=== PATIENT | female | born 1950 | race Caucasian/White ===

== ENCOUNTER → 2017-08-16 12:50 | Outpatient (CLI) | payer MEDICARE, MEDICAID, SELFPAY | PROVIDERS: Family Provider Physician Assistant Medical; PCP Physician Assistant Medical; Visit Provider Nurse Practitioner Gerontology | DX: M81.0 Age-related osteoporosis without current pathological fracture (principal) | CPT/HCPCS: 77080 ==

== ENCOUNTER → 2017-12-09 11:06 | Outpatient (CLI) | payer MEDICARE, MEDICAID, SELFPAY ==
--- NOTE | 2017-12-09 | DI.RAD.S_ITS ---
PROCEDURE: XR LUMBAR SPINE 2-3V INDICATIONS: NECK AND BACK PAIN TECHNIQUE: 3 views of the lumbar spine were acquired. COMPARISON: [facility], , L-SPINE 2-3 VIEWS, 07/26/2017, 11:33. FINDINGS: Bones: 5 [id number] vertebrae are present. Chronic appearing anterior wedge compression deformities involving L1, L2, and L4 vertebral bodies are again seen, unchanged from previous study. There is interval development of anterior wedge compression at L3 level with approximately 30% loss of L3 vertebral body height anteriorly. Subacute to chronic L5 superior endplate compression is again noted, unchanged from previous study. No traumatic spondylolisthesis. No suspicious bony lesions. Soft tissues: Overlying bowel gas pattern is normal. No suspicious soft tissue calcifications. IMPRESSION: Stable compression deformities involving L1, L2, L4 and L5 vertebral bodies unchanged from previous study. New anterior wedge compression at L3 level with up to 30% loss of L3 vertebral body height anteriorly. 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 Dictated by: Greyson Swenson M.D. on 12/09/2017 at 12:29 Approved by: Greyson Swenson M.D. on 12/09/2017 at 12:31
--- NOTE | 2017-12-09 | DI.RAD.S_ITS ---
PROCEDURE: XR THORACIC SPINE 2V INDICATIONS: NECK AND BACK PAIN TECHNIQUE: 2 views of the thoracic spine were acquired. COMPARISON: [facility], CT, CHEST/ABDOMEN WITH CONTRAST, 03/02/2015, 11:57. [facility], CR, L-SPINE 2-3 VIEWS, 07/26/2017, 11:33. FINDINGS: Bones: Age-indeterminate anterior wedge compression deformity involving T6, T8, and T9 vertebral bodies are seen without to 50% loss of T6 vertebral body height anteriorly. This was not seen on previous CT of chest, abdomen and pelvis study dated 03/02/15. Superior endplate compression at T11 level is noted with questionable interval slight further loss of T11 vertebral body height. Compression deformities involving L1 and L2 vertebral bodies are noted, which was also seen on previous lumbar spine study. No traumatic spondylolisthesis. Mild kyphosis centered at T6-7 level is seen. No suspicious bony lesions. 12 pairs of ribs are noted, and appear intact where visualized. Soft tissues: No paravertebral stripe thickening. IMPRESSION: Age indeterminant anterior wedge compression deformity at T6, T8 and T9 level is new since 2014. Questionable slight increase of superior endplate compression at T11 level compared to 2015 study. Compression deformities involving L1 and L2 vertebral bodies, please correlate with lumbar spine study finding. Dictated by: Greyson Swenson M.D. on 12/09/2017 at 12:15 Approved by: Greyson Swenson M.D. on 12/09/2017 at 12:28
--- NOTE | 2017-12-09 | DI.RAD.S_ITS ---
PROCEDURE: XR CERVICAL SPINE 2V OR 3V INDICATIONS: NECK AND BACK PAIN TECHNIQUE: 3 view(s) of the cervical spine were acquired. COMPARISON: None. FINDINGS: Bones: No fractures or dislocations to the C7-T1 level. Grade 1 anterolisthesis of C6 on C7 is seen. Decreased intervertebral disc space and degenerative endplate changes are noted at C4-5 through C6-7 levels more prominent at C5-6 level. Bilateral facet hypertrophic changes also noted. The lateral masses of C1 appear intact on the odontoid view. No suspicious bony lesions. Soft tissues: No prevertebral soft tissue swelling. IMPRESSION: Degenerative disc disease in mid to lower cervical spine multilevel end at C5-6 level. No acute compression fracture or traumatic spondylolisthesis. Dictated by: Greyson Swenson M.D. on 12/09/2017 at 12:13 Approved by: Greyson Swenson M.D. on 12/09/2017 at 12:15
== END ==
PROVIDERS: Family Provider Physician Assistant Medical; PCP Physician Assistant Medical; Visit Provider Physician Assistant Medical
DX: M50.322 Other cervical disc degeneration at C5-C6 level (principal); M48.54XA Collapsed vertebra, not elsewhere classified, thoracic region, initial encounter for fracture; M48.56XA Collapsed vertebra, not elsewhere classified, lumbar region, initial encounter for fracture; M51.36 Other intervertebral disc degeneration, lumbar region; M43.16 Spondylolisthesis, lumbar region; M54.5 Low back pain
CPT/HCPCS: 72040; 72070; 72100

== ENCOUNTER → 2018-04-29 09:24 | Outpatient (CLI) | payer MEDICARE, MEDICAID, SELFPAY ==
--- NOTE | 2018-04-29 | DI.MG.S_ITS ---
BILATERAL DIGITAL SCREENING MAMMOGRAM 3D/2D WITH CAD: 04/29/2018 CLINICAL: Routine screening. Family history of breast cancer. Comparison is made to exams dated: 02/18/2017 mammogram, 09/17/2016 mammogram - [facility], 12/13/2015 mammogram - [facility], and [facility]. There are scattered fibroglandular elements in both breasts. Current study was also evaluated with a Computer Aided Detection (CAD) system. No significant masses, calcifications, or other findings are seen in either breast. There has been no significant interval change. IMPRESSION: NEGATIVE There is no mammographic evidence of malignancy. A 1 year screening mammogram is recommended. This exam was interpreted at Station ID: [id number]. NOTE: For mammograms, a report in lay terms will be sent to the patient. Approximately 15% of breast malignancies will not be visualized mammographically. In the management of a palpable breast mass, a negative mammogram must not discourage biopsy of a clinically suspicious lesion. Electronically Signed By: Michi robertson/daria:04/29/2018 16:34:46 copy to: DRAKE ESPOSITO letter sent: Normal Exam ACR BI-RADS Category 1: Negative [id number]
== END ==
PROVIDERS: Family Provider Physician Assistant Medical; PCP Physician Assistant Medical; Visit Provider Physician Assistant Medical
DX: Z12.31 Encounter for screening mammogram for malignant neoplasm of breast (principal); Z80.3 Family history of malignant neoplasm of breast
CPT/HCPCS: 77063; 77067

== ENCOUNTER → 2018-11-03 12:56 | Outpatient (CLI) | payer MEDICARE, MEDICAID, SELFPAY | PROVIDERS: Family Provider Physician Assistant Medical; PCP Physician Assistant Medical; Visit Provider Physician Assistant Medical | DX: M80.00XA Age-related osteoporosis with current pathological fracture, unspecified site, initial encounter for fracture (principal); M85.89 Other specified disorders of bone density and structure, multiple sites; Z78.0 Asymptomatic menopausal state | CPT/HCPCS: 36415; 77080; 80053; 83615; 85025; 99215 ==

== ENCOUNTER → 2018-12-29 15:07 | Outpatient (CLI) | payer MEDICARE, MEDICAID, SELFPAY ==
--- NOTE | 2018-12-29 15:12 | DI.MRI.S_ITS ---
PROCEDURE: MR HEAD/BRAIN WO/W CON INDICATIONS: headache and aphasia TECHNIQUE: Noncontrast axial T1 spin echo, axial T2 fast spin echo, sagittal and axial FLAIR, coronal T2 fast spin echo, axial gradient echo, axial diffusion and ADC through the brain. After the administration of contrast, axial and coronal T1 spin echo with fat saturation through the brain. COMPARISON: None. FINDINGS: Image quality: Excellent. CSF spaces: Basal cisterns are patent. No extra-axial fluid collections. Ventricles are normal in size and shape. Brain: No midline shift. No intracranial bleeds or masses. No abnormal intracranial enhancement. There is cerebral volume loss for age. There is mild periventricular white matter chronic small vessel ischemic change. The brainstem appears normal. Diffusion-weighted images demonstrate no acute ischemic insults. No chronic ischemic insults. Normal intravascular flow voids are present. Skull and face: Calvarial marrow is normal in signal. Orbits appear normal. Sinuses: Small air-fluid level in the left frontal sinus. Sinuses and mastoids otherwise appear clear. IMPRESSION: 1. No evidence acute stroke, hemorrhage, or mass. 2. Mild age-related volume loss and small vessel ischemic change. 3. Mild acute left frontal sinusitis. The Dictated by: Rober Zayas M.D. on 12/29/2018 at 16:17 Approved by: Rober Zayas M.D. on 12/29/2018 at 16:21
== END ==
PROVIDERS: Family Provider Physician Assistant Medical; PCP Physician Assistant Medical; Visit Provider Internal Medicine Hematology & Oncology
DX: C82.90 Follicular lymphoma, unspecified, unspecified site (principal); R51 Headache; R47.01 Aphasia; J01.10 Acute frontal sinusitis, unspecified
CPT/HCPCS: 70553; A9579

== ENCOUNTER → 2019-05-26 14:06 | Outpatient (CLI) | payer MEDICARE, MEDICAID, SELFPAY ==
--- NOTE | 2019-05-26 | DI.MG.S_ITS ---
BILATERAL DIGITAL SCREENING MAMMOGRAM 3D/2D WITH CAD: 05/26/2019 CLINICAL: Routine screening. Family history of breast cancer. Comparison is made to exams dated: 04/29/2018 mammogram, 02/18/2017 mammogram, and 09/17/2016 mammogram - [facility]. There are scattered fibroglandular elements in both breasts. Current study was also evaluated with a Computer Aided Detection (CAD) system. No significant masses, calcifications, or other findings are seen in either breast. There has been no significant interval change. IMPRESSION: NEGATIVE There is no mammographic evidence of malignancy. A 1 year screening mammogram is recommended. This exam was interpreted at Station ID: [id number]. NOTE: For mammograms, a report in lay terms will be sent to the patient. Approximately 15% of breast malignancies will not be visualized mammographically. In the management of a palpable breast mass, a negative mammogram must not discourage biopsy of a clinically suspicious lesion. Electronically Signed By: Lisa armenta/daria:05/26/2019 16:08:09 copy to: DRAKE ESPOSITO letter sent: Normal Exam ACR BI-RADS Category 1: Negative [id number]
== END ==
PROVIDERS: Family Provider Physician Assistant Medical; PCP Physician Assistant Medical; Referring Provider Physician Assistant Medical; Visit Provider Physician Assistant Medical
DX: Z12.31 Encounter for screening mammogram for malignant neoplasm of breast (principal); Z80.3 Family history of malignant neoplasm of breast
CPT/HCPCS: 77063; 77067

== ENCOUNTER → 2020-08-11 11:33 | Outpatient (CLI) | payer MEDICARE, MEDICAID, SELFPAY ==
[2020-08-11 20:18] LABS: Add Manual Diff / Slide Review NO; Basophils Absolute Auto 100 /uL (0-100); Eosinophils Absolute Auto 100 /uL (0-450); Eosinophils Percent Auto 2.1 % (2-4); Hemoglobin 12.1 g/dL (12.0-16.0); Lymphocytes Absolute Auto 900 /uL (1100-4500); Lymphocytes Percent Auto 16.9 % (25-40); Mean Corpuscular HGB Conc 33.5 % (30-36); Mean Corpuscular Hemoglobin 31.1 PG (26-34); Mean Corpuscular Volume 92.7 fL (80-100); Monocytes Absolute Auto 600 /uL (0-900); Monocytes Percent Auto 10.7 % (3-14); Neutrophils Absolute Auto 3700 /uL (1500-7000); Neutrophils Percent Auto 69.3 % (50-75); Platelet Count 261 X10^3/uL (150-400); Red Blood Cell Count 3.89 X10^6/uL (4.0-5.2); Red Cell Distribution Width 14.3 % (11.6-14.8); White Blood Cell Count 5.3 X10^3/uL (4.5-11.0)
[2020-08-11 20:26] LABS: Alanine Aminotransferase 12 IU/L (<35); Albumin 4.2 g/dL (3.5-5.0); Albumin Globulin Ratio 1.2 (1.0-2.8); Alkaline Phosphatase 87 U/L (38-126); Aspartate Aminotransferase 25 IU/L (14-36); BUN Creatinine Ratio 17.7 (6-22); Bilirubin Total 0.8 mg/dL (0.2-1.3); Blood Urea Nitrogen 17 mg/dL (7-17); Calcium 10.1 mg/dL (8.4-10.2); Carbon Dioxide 31 mmol/L (22-32); Chloride 102 mmol/L (98-107); Estimated Glomerular Filt Rate 57.3 mL/min (>60); Globulin 3.5 g/dL (1.7-4.1); Glucose 97 mg/dL (80-110); HEMOLYSIS < 15 (0-50); Lactate Dehydrogenase 394 U/L (313-618); Potassium 4.3 mmol/L (3.4-5.1); Sodium 140 mmol/L (137-145); Total Protein 7.7 g/dL (6.3-8.2)
== END ==
PROVIDERS: Family Provider Physician Assistant Medical; PCP Physician Assistant Medical; Visit Provider Internal Medicine Hematology & Oncology
DX: K62.3 Rectal prolapse (principal); C82.90 Follicular lymphoma, unspecified, unspecified site
CPT/HCPCS: 80053; 83615; 85025

== ENCOUNTER → 2021-03-23 11:54 | Outpatient (CLI) | payer MEDICARE, MEDICAID, SELFPAY ==
[2021-03-23 19:16] LABS: Add Manual Diff / Slide Review NO; Basophils Absolute Auto 0 /uL (0-100); Basophils Percent Auto 0.8 % (0-2); Eosinophils Absolute Auto 100 /uL (0-450); Eosinophils Percent Auto 2.5 % (2-4); Hematocrit 32.9 % (36-46); Hemoglobin 11.1 g/dL (12.0-16.0); Lymphocytes Absolute Auto 1200 /uL (1100-4500); Lymphocytes Percent Auto 21.7 % (25-40); Mean Corpuscular HGB Conc 33.8 % (30-36); Mean Corpuscular Hemoglobin 30.9 PG (26-34); Mean Corpuscular Volume 91.5 fL (80-100); Monocytes Absolute Auto 700 /uL (0-900); Monocytes Percent Auto 12.4 % (3-14); Neutrophils Absolute Auto 3500 /uL (1500-7000); Neutrophils Percent Auto 62.6 % (50-75); Platelet Count 330 X10^3/uL (150-400); Red Cell Distribution Width 13.7 % (11.6-14.8); White Blood Cell Count 5.6 X10^3/uL (4.5-11.0)
[2021-03-23 19:22] LABS: Alanine Aminotransferase 13 IU/L (<35); Albumin 4.4 g/dL (3.5-5.0); Albumin Globulin Ratio 1.4 (1.0-2.8); Alkaline Phosphatase 75 U/L (38-126); Aspartate Aminotransferase 25 IU/L (14-36); BUN Creatinine Ratio 16.7 (6-22); Bilirubin Total 0.8 mg/dL (0.2-1.3); Blood Urea Nitrogen 15 mg/dL (7-17); Calcium 9.7 mg/dL (8.4-10.2); Carbon Dioxide 29 mmol/L (22-32); Chloride 101 mmol/L (98-107); Estimated Glomerular Filt Rate > 60.0 mL/min (>60); Globulin 3.1 g/dL (1.7-4.1); Glucose 84 mg/dL (80-110); HEMOLYSIS < 15 (0-50); Lactate Dehydrogenase 382 U/L (313-618); Potassium 4.1 mmol/L (3.4-5.1); Sodium 138 mmol/L (137-145); Total Protein 7.5 g/dL (6.3-8.2)
== END ==
PROVIDERS: Family Provider Physician Assistant Medical; PCP Physician Assistant Medical; Referring Provider Internal Medicine Hematology & Oncology; Visit Provider Internal Medicine Hematology & Oncology
DX: C82.90 Follicular lymphoma, unspecified, unspecified site (principal); M80.80XA Other osteoporosis with current pathological fracture, unspecified site, initial encounter for fracture
CPT/HCPCS: 80053; 83615; 85025

== ENCOUNTER → 2021-08-10 08:58 | Outpatient (CLI) | payer MEDICARE, MEDICAID, SELFPAY ==
--- NOTE | 2021-08-10 09:02 | DI.RAD.S_ITS ---
PROCEDURE: XR DEXA AXIAL SKELETON INDICATIONS: osteoporosis COMPARISON: None. FINDINGS: This blank DEXA report has been sent in error by the PACS system. The correct and complete report will be forthcoming in 1-2 days. Thank you for your patience and understanding. Dictated by: Adelaida Sainz MD, PhD on 08/10/2021 at 16:14 Approved by: Adelaida Sainz MD, PhD on 08/10/2021 at 16:14
== END ==
PROVIDERS: Family Provider Physician Assistant Medical; PCP Physician Assistant Medical; Referring Provider Internal Medicine Hematology & Oncology; Visit Provider Internal Medicine Hematology & Oncology
DX: Z78.0 Asymptomatic menopausal state (principal); M81.0 Age-related osteoporosis without current pathological fracture; M48.50XA Collapsed vertebra, not elsewhere classified, site unspecified, initial encounter for fracture
CPT/HCPCS: 77080

== ENCOUNTER → 2021-08-23 08:35 | Outpatient (CLI) | payer MEDICARE, MEDICAID, SELFPAY ==
[2021-08-23 18:59] LABS: Hematocrit 35.3 % (36-46); Hemoglobin 11.5 g/dL (12.0-16.0); Mean Corpuscular HGB Conc 32.6 % (30-36); Mean Corpuscular Hemoglobin 27.2 PG (26-34); Mean Corpuscular Volume 83.3 fL (80-100); Platelet Count 301 X10^3/uL (150-400); Red Blood Cell Count 4.24 X10^6/uL (4.0-5.2); Red Cell Distribution Width 18.2 % (11.6-14.8); White Blood Cell Count 14.7 X10^3/uL (4.5-11.0)
[2021-08-23 19:03] LABS: Add Manual Diff / Slide Review YES; Alanine Aminotransferase 14 IU/L (<35); Albumin 3.1 g/dL (3.5-5.0); Albumin Globulin Ratio 0.8 (1.0-2.8); Alkaline Phosphatase 268 U/L (38-126); Aspartate Aminotransferase 44 IU/L (14-36); BUN Creatinine Ratio 17.6 (6-22); Bilirubin Total 1.3 mg/dL (0.2-1.3); Blood Urea Nitrogen 12 mg/dL (7-17); Calcium 8.1 mg/dL (8.4-10.2); Carbon Dioxide 25 mmol/L (22-32); Chloride 93 mmol/L (98-107); Estimated Glomerular Filt Rate > 60 mL/min (>60); Globulin 3.8 g/dL (1.7-4.1); Glucose 99 mg/dL (80-110); HEMOLYSIS 21 (0-50); Potassium 3.2 mmol/L (3.4-5.1); Sodium 132 mmol/L (137-145); Total Protein 6.9 g/dL (6.3-8.2)
[2021-08-23 19:31] LABS: TSH w/ Reflex to FT4 1.52 uIU/mL (0.47-4.68)
[2021-08-23 20:10] LABS: Anisocytosis 1+; Neutrophils Absolute Manual 12936 /uL (3000-5900); Nucleated Red Blood Cells 1 #/Diff; Total Cells Counted 100
[2021-08-23 20:12] LABS: Polychromasia 1+; Target Cells 1+
[2021-08-23 20:38] LABS: Influenza A - CEPHEID Flu A NEGATIVE (NEGATIVE); Influenza B - CEPHEID Flu B NEGATIVE (NEGATIVE)
[2021-08-23 20:40] LABS: COVID-19 CEPHEID PCR (VTM/NP) Negative (Negative)
== END ==
PROVIDERS: Family Provider Physician Assistant Medical; PCP Physician Assistant Medical; Visit Provider Physician Assistant Medical
DX: R53.83 Other fatigue (principal); R11.0 Nausea; R19.7 Diarrhea, unspecified; R68.83 Chills (without fever); N89.0 Mild vaginal dysplasia
CPT/HCPCS: 0240U; 80053; 84443; 85007; 85025

== ENCOUNTER 2021-08-24 10:04 | Inpatient (IN) | payer MEDICARE, MEDICAID, SELFPAY ==
[2021-08-24] VITALS (18 sets, daily range): BP systolic 119–161; BP diastolic 69–83; PULSE 80–96; RESP 15–25; TEMP 36.2–37.1; O2SAT 94–98; BMI 26.4; BMI 25.7
--- NOTE | 2021-08-24 10:58 | DI.RAD.S_ITS ---
PROCEDURE: XR CHEST 1V INDICATIONS: weakness TECHNIQUE: One view of the chest was acquired. COMPARISON: [facility], , CHEST 1 VIEW, 07/10/2013, 12:48. FINDINGS: Surgical changes and devices: None. Lungs and pleura: Lungs are clear. No pleural effusions or pneumothorax. Diffuse chronic interstitial change and left lower lobe calcified granuloma noted in the periphery, stable from prior exam. Mediastinum: Mediastinal contours appear normal. Heart size is normal. Bones and chest wall: No suspicious bony lesions. Overlying soft tissues appear unremarkable. Generalized decrease in osseous mineralization noted. IMPRESSION: No acute cardiopulmonary findings Left lower lobe calcified granuloma Chronic interstitial changes Approved by: Candido Ruiz M.D. on 08/24/2021 at 10:29
--- NOTE | 2021-08-24 11:19 | ED.WEAKNESS ---
HPI - Weakness General Chief complaint: Weakness Stated complaint: Weakness/dehydration Time Seen by Provider: 08/24/21 10:56 Source: patient and EMS Mode of arrival: EMS Limitations: no limitations History of Present Illness HPI Narrative: This is a 70-year-old female comes emergency department with complaint of shortness of breath, left-sided chest pain and epigastric discomfort. Patient describes her pain is a tightness and not really painful. Syncope but she will sometimes see lights or feels like she is going to pass out. She has had increasing shortness of breath over time. She has had a dry cough which has been nonproductive. No fevers. She states it is worse with exertion. She denies any nausea or vomiting. She had 2 weeks of diarrhea which has resolved several weeks ago. She has had some persistent abdominal discomfort. She states she developed a rectal prolapse which is somewhat painful. She denies any dysuria urgency or frequency. She has a known history of lymphoma follows with Dr. Arguello for oncology for surveillance she had chemotherapy in 2012, no radiation. She is not currently on any medications. She takes medications for osteoarthritis including Tylenol daily, topical estrogen an antihistamine. She has had prior biopsy of nodes, port and vein stripping as well as but no other surgeries. Allergic to penicillin, latex and amoxicillin. Quit smoking in 1998, she was drinking 1 but light daily until about a week when she felt like she was developing an allergy. No illicit or recreational drugs. Primary care is Wendi paulson. Her oncologist is Dr. Arguello. Related Data Home Medications Medication Instructions Recorded Confirmed acetaminophen 650 mg 650 mg PO Q8H PRN 08/17/21 08/24/21 tablet,extended release Sleep Aid (diphenhydramine) 25 mg PO QPCHS 08/24/21 08/24/21 Previous Rx's Medication Instructions Recorded estradiol 10 mcg vaginal tablet See Rx Instructions .ROUTE 05/22/21 .COMPLEX #18 tab Allergies Allergy/AdvReac Type Severity Reaction Status Date / Time Penicillins Allergy Severe HIVES, Verified 08/24/21 10:14 THROAT SWELLING glycerin Allergy Mild RASH Verified 08/24/21 10:14 latex Allergy Mild RASH Verified 08/24/21 10:14 oxycodone Allergy Mild ITCHING Verified 08/24/21 10:14 grape seed AdvReac Mild FEVER Verified 08/24/21 10:14 BLISTERS FERMENTED FOODS Allergy Mild RASH Uncoded 08/24/21 10:14 FOOD PRESERVATIVES Allergy Mild RASH Uncoded 08/24/21 10:14 ACIDIC FOODS Allergy Unknown Uncoded 08/24/21 10:14 Review of Systems Review of Systems ROS Unobtainable: All systems reviewed & are unremarkable except as noted in HPI and below Patient History Medical History Allergies Chicken pox Chronic back pain Eczema Follicular lymphoma (~2011) Fractures Frequent UTI (~2012) Headache Human papilloma virus (~2012) Measles Migraines Near sighted Osteoporosis (~2013) Pulmonary embolism (~1994) Surgical History Anesthesia H/O varicose vein ligation (~1994) History of surgery (~1969) Status post biopsy Status post delivery (~1987) Status post dilation and curettage Status post dilation and curettage Status post loop electrosurgical excision procedure (LEEP) of cervix Family History Father No problems noted. Mother Skin cancer Mental health problem Sister Polio Social History household members: none Smoking Status: Former smoker alcohol intake: former Smoking Status: Former smoker tobacco type: cigarettes alcohol intake frequency: 0-2 drinks per day Alcohol type: beer Substance Use Type: does not use Exam Narrative Exam Narrative: GENERAL: Alert and oriented x three, female in mild distress HEENT: Head normocephalic, atraumatic, EOMI, pupils reactive, face symmetric, moist mucous membranes NECK: Supple, full range of motion CARDIOVASCULAR: Regular rate and rhythm without murmurs, rubs or gallops. RESPIRATORY: Breath sounds equal bilaterally, no wheezes, no rhonchi. Problems crackles bilaterally. No tachypnea accessory muscle use. Speaks in full sentences. ABDOMEN: Soft, nontender. Normoactive bowel sounds all 4 quadrants. No guarding or rebound, rigidity, no mass : No CVA tenderness EXTREMITIES: Normal range of motion, no clubbing or edema. Neurovascularly intact NEUROLOGICAL: Cranial nerves II through XII grossly intact. Moving all extremities SKIN: Warm, dry, no petechiae, no rashes or lesions. Initial Vital Signs Initial Vital Signs: Vital Signs Temperature 98.5 F 08/24/21 10:06 Pulse Rate 89 08/24/21 10:06 Blood Pressure 161/73 H 08/24/21 10:06 Pulse Oximetry 98 08/24/21 10:06 Course Orders Ordered: Acetaminophen (Acetaminophen 325 Mg Tablet) 650 mg PO Q6HR PRN PRN Reason: Fever Last Admin: 08/24/21 19:04 Dose: 650 mg Documented by: LATRICIA Hydrocodone Bitart/Acetaminophen (Hydrocodone/Acet 5/325 Tablet) 1 tab PO Q4HR PRN PRN Reason: Pain, Moderate (4-6) Bisacodyl (Bisacodyl 10 Mg Supp) 10 mg OR DAILY PRN PRN Reason: Constipation Calcium Carbonate (Calcium Carbonate 500 Mg Tab) 1,000 mg PO Q4HR PRN PRN Reason: Dyspepsia Diphenhydramine HCl (Diphenhydramine 25 Mg Tablet) 25 mg PO BEDTIME PRN PRN Reason: Insomnia Last Admin: 08/24/21 19:04 Dose: 25 mg Documented by: LATRICIA Enoxaparin Sodium (Enoxaparin 80 Mg/0.8 Ml Syringe) 70 mg 1 mg/kg (70 mg) SUBCUT BID [facility] Melatonin (Melatonin 3 Mg Tablet) 6 mg PO BEDTIME [facility] Last Admin: 08/24/21 21:33 Dose: Not Given Documented by: JONES Morphine Sulfate (Morphine 2 Mg/Ml Inj) 2 mg IV Q4H PRN PRN Reason: Breakthrough pain only (8-10) Naloxone HCl (Naloxone 0.4 Mg/Ml Vial) 0.2 mg IV Q2MIN PRN PRN Reason: Opiate Reversal Stored In Pharmacy 0 each PO . [facility] Ondansetron HCl (Ondansetron 4 Mg/2 Ml Inj) 4 mg IV Q8HR PRN PRN Reason: Nausea And Vomiting Pantoprazole Sodium (Pantoprazole Dr 20 Mg Tablet) 20 mg PO 0600 [facility] Last Admin: 08/25/21 06:03 Dose: 20 mg Documented by: JONES Potassium Chloride (Potassium Chloride 20 Meq Tab) 20 meq PO BIDWM [facility] Sennosides (Sennosides 8.6 Mg Tablet) 17.2 mg PO BEDTIME [facility] Last Admin: 08/24/21 21:33 Dose: Not Given Documented by: JONES Sodium Chloride (Sodium Chloride 0.9% Flush) 10 ml IV BID [facility] Sodium Chloride (Sodium Chloride 0.9% Flush) 10 ml IV PRN PRN PRN Reason: Flush Last Admin: 08/25/21 06:04 Dose: 10 ml Documented by: JONES Tramadol HCl (Tramadol 50 Mg Tablet) 50 mg PO Q4H PRN PRN Reason: Pain, Moderate (4-6) Trazodone HCl (Trazodone 50 Mg Tablet) 50 mg PO BEDTIME [facility] Last Admin: 08/24/21 21:33 Dose: Not Given Documented by: JONES Discontinued Medications Enoxaparin Sodium (Enoxaparin 40 Mg/0.4 Ml Syringe) 70 mg 1 mg/kg (70 mg) SUBCUT BID ONE Stop: 08/24/21 14:17 Last Admin: 08/24/21 15:00 Dose: 70 mg Documented by: YESY Enoxaparin Sodium (Enoxaparin 40 Mg/0.4 Ml Syringe) 70 mg 1 mg/kg (70 mg) SUBCUT BID [facility] Last Admin: 08/24/21 20:57 Dose: 70 mg Documented by: JONES Reevaluation(s) Reevaluation #1: Updated patient and findings today including concern for new malignancy. Patient also has multiple pulmonary emboli. She has significant issues with ambulation secondary to back pain. Time: 14:35 Reevaluation #2: Patient is agreeable to staying. Discussed plans to initiate anticoagulants, needs colonoscopy and follow-up with oncology. I did update her oncologist Dr. Arguello who is aware of her new findings on CT imaging. Consultations Consultation #1: Spoke with Dr. Martinez, accepts for admission. Multiple pulmonary emboli although vitals are stable. new malignancy with difficulty accessing resources [place] and will likely need placement at least for short term in a living facility. Time: 14:43 Vital Signs Vital signs: Vital Signs - 8 hr 08/24/21 10:06 08/24/21 10:10 08/24/21 10:11 Temperature 98.5 F Pulse Rate 89 86 92 H Respiratory Rate 25 H 23 Blood Pressure 161/73 H 161/73 H Pulse Oximetry 98 98 98 08/24/21 10:30 08/24/21 11:00 08/24/21 11:30 Temperature Pulse Rate 83 86 83 Respiratory Rate 19 24 17 Blood Pressure 132/79 130/83 136/76 Pulse Oximetry 95 96 96 08/24/21 12:00 08/24/21 12:30 Temperature Pulse Rate 80 83 Respiratory Rate 15 18 Blood Pressure 133/77 137/70 Pulse Oximetry 96 96 MDM - Weakness Lab Data Result diagrams: 08/25/21 05:40 08/25/21 05:40 Labs: Lab Results 08/24/21 08/24/21 08/24/21 Range/Units 10:15 10:15 10:15 WBC 12.8 H (4.5-11.0) X10^3/uL RBC 3.64 L (4.0-5.2) X10^6/uL Hgb 9.8 L (12.0-16.0) g/dL Hct 29.8 L (36-46) % MCV 81.7 (80-100) fL MCH 26.8 (26-34) PG MCHC 32.8 (30-36) % RDW 18.2 H (11.6-14.8) % Plt Count 364 (150-400) X10^3/uL Neut % (Auto) 80.2 H (50-75) % Lymph % (Auto) 3.5 L (25-40) % [place] % (Auto) 10.5 (3-14) % Eos % (Auto) 5.0 H (2-4) % Baso % (Auto) 0.8 (0-2) % Neut # (Auto) 44056 H (7602-8519) /uL Lymph # (Auto) 500 L (4651-7010) /uL [place] # (Auto) 1300 H (0-900) /uL Eos # (Auto) 600 H (0-450) /uL Baso # (Auto) 100 (0-100) /uL Sodium 131 L (137-145) mmol/L Potassium 3.1 L (3.4-5.1) mmol/L Chloride 92 L (98-107) mmol/L Carbon Dioxide 29 (22-32) mmol/L BUN 11 (7-17) mg/dL Creatinine 0.61 (0.52-1.04) mg/dL Estimated GFR > 60 (>60) mL/min BUN/Creatinine Ratio 18.0 (6-22) Glucose 90 (80-110) mg/dL Calcium 7.9 L (8.4-10.2) mg/dL Total Bilirubin 0.9 (0.2-1.3) mg/dL AST 43 H (14-36) IU/L ALT 12 (<35) IU/L Alkaline Phosphatase 243 H (38-126) U/L Total Creatine Kinase 26 L (30-135) U/L CK-MB (CK-2) TNP CK-MB (CK-2) Rel Index TNP Troponin I < 0.012 (0.01-0.034) ng/mL NT-Pro-B Natriuret Pep 847 H (<125) pg/mL Total Protein 6.5 (6.3-8.2) g/dL Albumin 2.8 L (3.5-5.0) g/dL Globulin 3.7 (1.7-4.1) g/dL Albumin/Globulin Ratio 0.8 L (1.0-2.8) Lipase 36 (23-300) U/L SARS-CoV-2 (PCR) (Negative) 08/24/21 08/24/21 Range/Units 11:00 13:00 WBC (4.5-11.0) X10^3/uL RBC (4.0-5.2) X10^6/uL Hgb (12.0-16.0) g/dL Hct (36-46) % MCV (80-100) fL MCH (26-34) PG MCHC (30-36) % RDW (11.6-14.8) % Plt Count (150-400) X10^3/uL Neut % (Auto) (50-75) % Lymph % (Auto) (25-40) % [place] % (Auto) (3-14) % Eos % (Auto) (2-4) % Baso % (Auto) (0-2) % Neut # (Auto) (3836-4778) /uL Lymph # (Auto) (6650-0301) /uL [place] # (Auto) (0-900) /uL Eos # (Auto) (0-450) /uL Baso # (Auto) (0-100) /uL Sodium (137-145) mmol/L Potassium (3.4-5.1) mmol/L Chloride (98-107) mmol/L Carbon Dioxide (22-32) mmol/L BUN (7-17) mg/dL Creatinine (0.52-1.04) mg/dL Estimated GFR (>60) mL/min BUN/Creatinine Ratio (6-22) Glucose (80-110) mg/dL Calcium (8.4-10.2) mg/dL Total Bilirubin (0.2-1.3) mg/dL AST (14-36) IU/L ALT (<35) IU/L Alkaline Phosphatase (38-126) U/L Total Creatine Kinase (30-135) U/L CK-MB (CK-2) CK-MB (CK-2) Rel Index Troponin I < 0.012 (0.01-0.034) ng/mL NT-Pro-B Natriuret Pep (<125) pg/mL Total Protein (6.3-8.2) g/dL Albumin (3.5-5.0) g/dL Globulin (1.7-4.1) g/dL Albumin/Globulin Ratio (1.0-2.8) Lipase (23-300) U/L SARS-CoV-2 (PCR) Negative (Negative) Imaging Data Chest x-ray: Radiologist Impression: Launch?Image [address] [address] XRay Report Signed Patient: Mehreen Miller MR#: [id number] : 1950 Acct:[id number] Age/Sex: 70 / F Date of Service: 08/24/21 Loc: ED Accession Number: [id number] ?? Procedure: XR chest 1V Ordering Provider: Rosmery Vela D.O. PROCEDURE:? XR CHEST 1V ? INDICATIONS:? weakness ? TECHNIQUE:? One view of the chest was acquired.? ? COMPARISON:? [facility], , CHEST 1 VIEW, 07/10/2013, 12:48. ? FINDINGS:? ? Surgical changes and devices:? None.? ? Lungs and pleura:? Lungs are clear.? No pleural effusions or pneumothorax.? Diffuse chronic interstitial change and left lower lobe calcified granuloma noted in the periphery, stable from prior exam. ? Mediastinum:? Mediastinal contours appear normal.? Heart size is normal.? ? Bones and chest wall:? No suspicious bony lesions.? Overlying soft tissues appear unremarkable.? Generalized decrease in osseous mineralization noted. ? IMPRESSION:? ? No acute cardiopulmonary findings Left lower lobe calcified granuloma Chronic interstitial changes ? ? ? Approved by: Candido Ruiz M.D. on 08/24/2021 at 10:29? CT scan - chest: Radiologist Impression: Close Chest CTA (Signed) [place] - 08/24/21 Abdomen/Pelvis CT (Signed) Rober Zayas - 08/24/21 Chest X-Ray (Signed) Candido Ruiz - 08/24/21 DEXA Result 08/10/21 Bone Densitometry (Signed) EmeliAdelaida - 08/10/21 Mammogram Screening (Signed) Lisa Stinson - 05/26/19 Brain MRI (Signed) MarquezRober - 12/29/18 DEXA Result 11/03/18 Bone Densitometry 11/03/18 Mammogram Screening (Signed) Michi Bolanos - 04/29/18 Thoracic Spine X-Ray (Signed) Greyson Swenson - 12/09/17 Lumbar Spine X-Ray (Signed) Greyson Swenson - 12/09/17 Cervical Spine X-Ray (Signed) Greyson Swenson - 12/09/17 Launch?[place] [address] CT Scan Report Signed Patient: Mehreen Miller MR#: [id number] : 1950 Acct:[id number] Age/Sex: 70 / F Date of Service: 08/24/21 Loc: ED Accession Number: [id number] ?? Procedure: CT angio chest PE protocol Ordering Provider: Rosmery Vela D.O. PROCEDURE:? CT ANGIO CHEST PE PROTOCOL ? INDICATIONS:? sob, lymphoma ? TECHNIQUE:? After the administration of intravenous contrast, 2 mm thick sections acquired from the pulmonary apices to the posterior costophrenic angles.? 3-dimensional maximum intensity projection (MIP) coronal and sagittal reformats were then acquired through the thorax.? For radiation dose reduction, the following was used:? automated exposure control, adjustment of mA and/or kV according to patient size.? ? COMPARISON:? [facility], CT, CT ABDOMEN PELVIS W CON, 08/24/2021, 12:37. ? FINDINGS:? Image quality:? Excellent.? ? Pulmonary arteries:? Numerous bilateral acute pulmonary emboli are present.? All the pulmonary emboli are peripheral.? The central pulmonary vessels are clear and are not dilated. ? Lungs and pleura:? Lungs are clear.? Calcified granuloma, extreme left lung base.? No pleural effusions or pneumothorax.? Central and peripheral airways are patent.? ? Mediastinum:? Borderline cardiomegaly.? Normal LV RV ratio.? No mediastinal or hilar adenopathy.? Thoracic aorta is normal in caliber and enhancement.? Esophagus is normal in caliber, without hiatal hernia.? ? Bones and chest wall:? Compression fractures of T6, T8, T9, T11, L1, and L2.? Ribs and thoracic spine appear intact throughout.? Thyroid gland is unremarkable as visualized..? No axillary or supraclavicular adenopathy.? ? Abdomen:? A very large necrotic right lobe liver mass is much better appreciated on the abdominal films.? Also present are malignant periportal lymph nodes. ? IMPRESSION:? ? 1. Extensive bilateral pulmonary emboli, peripheral, with no evidence of acute right heart strain. ? 2. Extensive findings of malignancy in the abdomen.? Findings seen on the chest images include a very large right lobe liver mass and malignant periportal lymph nodes. ? 3. Numerous compression fractures can either represent severe osteoporosis or potentially undiagnosis multiple myeloma. ? Comment: Findings were discussed with Dr. Vela at the time of study dictation.? ? ? Dictated by: Rober Zayas M.D. on 08/24/2021 at 13:16 ? ? Approved by: Rober Zayas M.D. on 08/24/2021 at 13:25?? CT scan - abdomen/pelvis: Radiologist Impression: Launch?[address] [address] [address] Scan Report Signed Patient: Mehreen Miller MR#: [id number] : 1950 Acct:[id number] Age/Sex: 70 / F Date of Service: 08/24/21 Loc: ED Accession Number: [id number] ?? Procedure: CT abdomen pelvis w con Ordering Provider: Rosmery Vela D.O. PROCEDURE:? CT ABDOMEN PELVIS W CON ? INDICATIONS:? abd pain, lymphoma ? TECHNIQUE:? After the administration of intravenous contrast, axial sections acquired from the lung bases to the pubic symphysis.? Coronal and sagittal reformats were performed.? For radiation dose reduction, the following was used:? automated exposure control, adjustment of mA and/or kV according to patient size.? ? COMPARISON:? [facility], CT, ABDOMEN/PELVIS WITH CONTRAST, 05/19/2013, 10:58. ? FINDINGS:? Image quality:? Excellent.? ? Lung bases:? Unremarkable. Heart:? No significant findings. ? ABDOMEN: Liver:? Very large centrally necrotic right lobe liver mass measuring 7.6 x 8.0 x 10.3 cm.? This results in posterior segment right intrahepatic biliary ductal dilatation. Gallbladder:? The gallbladder is diffusely contracted with wall edema.? Wall edema was present previously.? ? Biliary ducts:? Unremarkable.? ? Pancreas:? Unremarkable.? ? Spleen:? Unremarkable.? ? Adrenal Glands:? Unremarkable.? ? Kidneys and Ureters:? Unremarkable.? ? ? Stomach and Bowel:? There is malignancy involving the cecum and ascending colon.? There is marked diffuse wall thickening and question of spread into the adjacent fat.? Extensive sigmoid diverticulosis without evidence of diverticulitis. Peritoneum:? Mild pelvic ascites.? No free air.? ? Ventral Wall: ? No hernias.? Abdominal Nodes:? Malignant necrotic periportal lymph nodes.? These include a 2.4 x 4.1 cm lymph node on image 28/6 and a 3.3 x 1.9 cm periportal lymph node on image 26/6.? ? The previous periaortic lymphadenopathy consistent with the patient's history of lymphoma is largely disappeared. Vessels:? Aorta and inferior vena cava are normal in size.? ? PELVIS: Pelvic Organs:? Unremarkable.? ? Bladder:? Unremarkable.? ? Pelvic Nodes: No enlarged lymph nodes.? Miscellaneous: No hernias are seen. ? ? ? Bones:? Severe osteoporosis.? There are numerous compression fractures, a number of them are marked.? Compression fractures involve T8, T9, T11, L1, L2, L3, L4, and L5.? No lytic or blastic bony lesions are identified. ? ? IMPRESSION:? ? 1. The previous lymphoma appears be significantly improved or resolved. ? 2. Unfortunately, there is what appears to be a adenocarcinoma of the right colon with probable spread into the adjacent fat, metastatic periportal adenopathy, and a very large necrotic liver metastatic lesion.? The liver metastatic lesion obstructs the right posterior intrahepatic bile ducts. ? 3. Severe osteoporosis with innumerable compressions.? Alternatively, these compression fractures can be associated with multiple myeloma as a different etiology.? ? ? Dictated by: Rober Zayas M.D. on 08/24/2021 at 13:03 ? ? Approved by: Rober Zayas M.D. on 08/24/2021 at 13:16?? ECG Data Attestation: I personally reviewed and interpreted this ECG as follows: Interpretation: Sinus rhythm premature atrial complexes. Rate 89, OR 144 QRS is 74 and QTC of 472. No acute ST elevation/depression. Nonspecific change. MDM Narrative Medical decision making narrative: This is a 70-year-old female with increased weakness, dyspnea that is been progressive. And complaint of abdominal pain. Patient has had no syncope but does feel lightheaded. Imaging shows multiple bilateral PEs, no saddle or pulmonary artery pulmonary emboli. No right heart strain. Patient has had lightheadedness but no active syncope. Electrolyte abnormalities with sodium 131 potassium 3.1 but normal renal function. Patient troponin is negative x2. She has an anemia at 9.8 but appears to range between 9 and 11. Patient is covid negative. CT imaging is noted to have changes concerning for new adenocarcinoma, with changes to the liver as well. Patient has multiple compression fractures which may be secondary her osteoporosis but multiple myeloma was also on the differential. Patient has a known history of lymphoma. Patient has issues with access to care she lives on [place] independently at home. She is having significant difficulty ambulating secondary to dizziness as well as back pain which is why she was flown here from [place]. Discussed with hospitalist who accepts. Patient was started on Lovenox here in the department, discussed with hospitalist, Dr. Martinez. Discharge Plan Departure Patient Disposition: Admitted As Inpatient Clinical Impression: Pulmonary embolism, bilateral, Abdominal mass, Compression fracture Admit Date/Time: 08/24/21 14:35 Admit Provider: Saroj Lamb
[2021-08-24 11:45] LABS: COVID19 -Nasal RAPID Negative (Negative)
[2021-08-24 11:50] LABS: Add Manual Diff / Slide Review NO; Basophils Absolute Auto 100 /uL (0-100); Basophils Percent Auto 0.8 % (0-2); Eosinophils Absolute Auto 600 /uL (0-450); Hematocrit 29.8 % (36-46); Hemoglobin 9.8 g/dL (12.0-16.0); Lymphocytes Absolute Auto 500 /uL (1100-4500); Lymphocytes Percent Auto 3.5 % (25-40); Mean Corpuscular HGB Conc 32.8 % (30-36); Mean Corpuscular Hemoglobin 26.8 PG (26-34); Mean Corpuscular Volume 81.7 fL (80-100); Monocytes Absolute Auto 1300 /uL (0-900); Monocytes Percent Auto 10.5 % (3-14); Neutrophils Absolute Auto 10300 /uL (1500-7000); Neutrophils Percent Auto 80.2 % (50-75); Platelet Count 364 X10^3/uL (150-400); Red Blood Cell Count 3.64 X10^6/uL (4.0-5.2); Red Cell Distribution Width 18.2 % (11.6-14.8); White Blood Cell Count 12.8 X10^3/uL (4.5-11.0)
[2021-08-24 11:53] LABS: Alanine Aminotransferase 12 IU/L (<35); Albumin 2.8 g/dL (3.5-5.0); Albumin Globulin Ratio 0.8 (1.0-2.8); Alkaline Phosphatase 243 U/L (38-126); Aspartate Aminotransferase 43 IU/L (14-36); Bilirubin Total 0.9 mg/dL (0.2-1.3); Blood Urea Nitrogen 11 mg/dL (7-17); Calcium 7.9 mg/dL (8.4-10.2); Carbon Dioxide 29 mmol/L (22-32); Chloride 92 mmol/L (98-107); Creatine Kinase 26 U/L (30-135); Estimated Glomerular Filt Rate > 60 mL/min (>60); Globulin 3.7 g/dL (1.7-4.1); Glucose 90 mg/dL (80-110); HEMOLYSIS < 15 (0-50); Lipase 36 U/L (23-300); Potassium 3.1 mmol/L (3.4-5.1); Sodium 131 mmol/L (137-145); Total Protein 6.5 g/dL (6.3-8.2)
[2021-08-24 12:02] LABS: NT-proBNP (BNP-Adult 18+) 847 pg/mL (<125)
[2021-08-24 12:05] LABS: Troponin I < 0.012 ng/mL (0.01-0.034)
--- NOTE | 2021-08-24 12:32 | DI.CT.S_ITS ---
PROCEDURE: CT ANGIO CHEST PE PROTOCOL INDICATIONS: sob, lymphoma TECHNIQUE: After the administration of intravenous contrast, 2 mm thick sections acquired from the pulmonary apices to the posterior costophrenic angles. 3-dimensional maximum intensity projection (MIP) coronal and sagittal reformats were then acquired through the thorax. For radiation dose reduction, the following was used: automated exposure control, adjustment of mA and/or kV according to patient size. COMPARISON: [facility], CT, CT ABDOMEN PELVIS W CON, 08/24/2021, 12:37. FINDINGS: Image quality: Excellent. Pulmonary arteries: Numerous bilateral acute pulmonary emboli are present. All the pulmonary emboli are peripheral. The central pulmonary vessels are clear and are not dilated. Lungs and pleura: Lungs are clear. Calcified granuloma, extreme left lung base. No pleural effusions or pneumothorax. Central and peripheral airways are patent. Mediastinum: Borderline cardiomegaly. Normal LV RV ratio. No mediastinal or hilar adenopathy. Thoracic aorta is normal in caliber and enhancement. Esophagus is normal in caliber, without hiatal hernia. Bones and chest wall: Compression fractures of T6, T8, T9, T11, L1, and L2. Ribs and thoracic spine appear intact throughout. Thyroid gland is unremarkable as visualized.. No axillary or supraclavicular adenopathy. Abdomen: A very large necrotic right lobe liver mass is much better appreciated on the abdominal films. Also present are malignant periportal lymph nodes. IMPRESSION: 1. Extensive bilateral pulmonary emboli, peripheral, with no evidence of acute right heart strain. 2. Extensive findings of malignancy in the abdomen. Findings seen on the chest images include a very large right lobe liver mass and malignant periportal lymph nodes. 3. Numerous compression fractures can either represent severe osteoporosis or potentially undiagnosis multiple myeloma. Comment: Findings were discussed with Dr. Vela at the time of study dictation. Dictated by: Rober Zayas M.D. on 08/24/2021 at 13:16 Approved by: Rober Zayas M.D. on 08/24/2021 at 13:25
--- NOTE | 2021-08-24 12:32 | DI.CT.S_ITS ---
PROCEDURE: CT ABDOMEN PELVIS W CON INDICATIONS: abd pain, lymphoma TECHNIQUE: After the administration of intravenous contrast, axial sections acquired from the lung bases to the pubic symphysis. Coronal and sagittal reformats were performed. For radiation dose reduction, the following was used: automated exposure control, adjustment of mA and/or kV according to patient size. COMPARISON: [facility], CT, ABDOMEN/PELVIS WITH CONTRAST, 05/19/2013, 10:58. FINDINGS: Image quality: Excellent. Lung bases: Unremarkable. Heart: No significant findings. ABDOMEN: Liver: Very large centrally necrotic right lobe liver mass measuring 7.6 x 8.0 x 10.3 cm. This results in posterior segment right intrahepatic biliary ductal dilatation. Gallbladder: The gallbladder is diffusely contracted with wall edema. Wall edema was present previously. Biliary ducts: Unremarkable. Pancreas: Unremarkable. Spleen: Unremarkable. Adrenal Glands: Unremarkable. Kidneys and Ureters: Unremarkable. Stomach and Bowel: There is malignancy involving the cecum and ascending colon. There is marked diffuse wall thickening and question of spread into the adjacent fat. Extensive sigmoid diverticulosis without evidence of diverticulitis. Peritoneum: Mild pelvic ascites. No free air. Ventral Wall: No hernias. Abdominal Nodes: Malignant necrotic periportal lymph nodes. These include a 2.4 x 4.1 cm lymph node on image 28/6 and a 3.3 x 1.9 cm periportal lymph node on image 26/6. The previous periaortic lymphadenopathy consistent with the patient's history of lymphoma is largely disappeared. Vessels: Aorta and inferior vena cava are normal in size. PELVIS: Pelvic Organs: Unremarkable. Bladder: Unremarkable. Pelvic Nodes: No enlarged lymph nodes. Miscellaneous: No hernias are seen. Bones: Severe osteoporosis. There are numerous compression fractures, a number of them are marked. Compression fractures involve T8, T9, T11, L1, L2, L3, L4, and L5. No lytic or blastic bony lesions are identified. IMPRESSION: 1. The previous lymphoma appears be significantly improved or resolved. 2. Unfortunately, there is what appears to be a adenocarcinoma of the right colon with probable spread into the adjacent fat, metastatic periportal adenopathy, and a very large necrotic liver metastatic lesion. The liver metastatic lesion obstructs the right posterior intrahepatic bile ducts. 3. Severe osteoporosis with innumerable compressions. Alternatively, these compression fractures can be associated with multiple myeloma as a different etiology. Dictated by: Rober Zayas M.D. on 08/24/2021 at 13:03 Approved by: Rober Zayas M.D. on 08/24/2021 at 13:16
[2021-08-24 13:35] LABS: Troponin I < 0.012 ng/mL (0.01-0.034)
[2021-08-24] MEDS: ENOXAPARIN 40 MG/0.4 ML SYRINGE 70 MG SUBCUT ×2 (15:00→20:57)
[2021-08-24] MEDS: diphenhydrAMINE 25 MG TABLET PO (19:04)
[2021-08-24] MEDS: ACETAMINOPHEN 325 MG TABLET 650 MG PO (19:04)
--- NOTE | 2021-08-24 19:06 | PC.NURSE ---
Pt arrived at 1545, VSS, afebrile on RA. Crackles ausculated in lung Bilaterally upper and lower. Pt denies CP. She reports pain to back chronic 5/10, medicated per request with PRN tylenol. She is able to eat 100% of dinner. She calls appropriately for assist to the BR. She is a slow steady gait. She denies dizziness. Noted +2-3 edema in bilateral extremities. Continuous monitoring. NSR on telemetry. Endorsed to oncoming shift, plan for PT /OT consultation and observation.
--- NOTE | 2021-08-24 19:59 | PM.HP.1 ---
History of Present Illness History of Present Illness Date Patient Seen: 08/24/21 Time Patient Seen: 19:59 Chief complaint: Weakness/dehydration Narrative: This is a 70-year-old female with lymphoma, osteoporosis and multiple spinal compression fractures who presents with left-sided chest pain and shortness of breath for 3 days. She saw her primary care physician speech therapy assistant yesterday on [facility] who did initial testing and then today contacted her with directions to go to the emergency department. She arrived by helicopter here and has had CT scanning confirming a pulmonary embolus and a Liver Metastasis from an apparent right Colon Cancer source. She did have a PE once before in 1994 after vein surgery. She has had no fevers, coughing, abdominal pain, bleeding, rash. Patient History Medical History Allergies Chicken pox Chronic back pain Eczema Follicular lymphoma (~2011) Fractures Frequent UTI (~2012) Headache Human papilloma virus (~2012) Measles Migraines Near sighted Osteoporosis (~2013) Pulmonary embolism (~1994) Surgical History Anesthesia H/O varicose vein ligation (~1994) History of surgery (~1969) Status post biopsy Status post delivery (~1987) Status post dilation and curettage Status post dilation and curettage Status post loop electrosurgical excision procedure (LEEP) of cervix Family & Social History Family History Father No problems noted. Mother Skin cancer Mental health problem Sister Polio Social History: household members none Prior Living Arrangements Apartment/Condo Safety & Behavioral: Feels Safe in Current Yes Environment Been Physically Hurt or No Threatened By a Person Tobacco & Substance use: Tobacco type cigarettes Smoking Status Former smoker Smoking packs per day 0.5 alcohol intake former alcohol intake frequency 0-2 drinks per day Substance Use Type does not use Meds Home Medications and Allergies Home Medications Medication Instructions Recorded Confirmed Type estradiol 10 mcg vaginal tablet See Rx Instructions .ROUTE 05/22/21 08/24/21 Rx .COMPLEX #18 tab acetaminophen 650 mg 650 mg PO Q8H PRN 08/17/21 08/24/21 History tablet,extended release Sleep Aid (diphenhydramine) 25 mg PO QPCHS 08/24/21 08/24/21 History Allergies Allergy/AdvReac Type Severity Reaction Status Date / Time Penicillins Allergy Severe HIVES, Verified 08/24/21 10:14 THROAT SWELLING glycerin Allergy Mild RASH Verified 08/24/21 10:14 latex Allergy Mild RASH Verified 08/24/21 10:14 oxycodone Allergy Mild ITCHING Verified 08/24/21 10:14 grape seed AdvReac Mild FEVER Verified 08/24/21 10:14 BLISTERS FERMENTED FOODS Allergy Mild RASH Uncoded 08/24/21 10:14 FOOD PRESERVATIVES Allergy Mild RASH Uncoded 08/24/21 10:14 ACIDIC FOODS Allergy Unknown Uncoded 08/24/21 10:14 Review of Systems Review of Systems Narrative: Positive for left-sided chest pain, vague abdominal pain and shortness of breath Negative for fevers, chills, sweats, coughing, dysuria, bleeding, rashes, seizures, headaches, joint pain, new allergies. Exam Vital Signs (past 8 hours): - 08/24/21 12:00 08/24/21 12:30 08/24/21 13:00 Temperature Pulse Rate 80 83 81 Respiratory Rate 15 18 24 Blood Pressure 133/77 137/70 Pulse Oximetry 96 96 97 08/24/21 13:30 08/24/21 14:00 08/24/21 14:30 Temperature Pulse Rate 81 81 87 Respiratory Rate 22 20 23 Blood Pressure Pulse Oximetry 95 94 97 08/24/21 15:00 08/24/21 15:32 08/24/21 15:45 Temperature 98.7 F Pulse Rate 87 90 96 H Respiratory Rate 21 18 16 Blood Pressure 157/72 H 119/73 Pulse Oximetry 98 96 98 08/24/21 16:31 08/24/21 19:48 Temperature 98.7 F 97.1 F L Pulse Rate 96 H 95 H Respiratory Rate 16 18 Blood Pressure 119/73 131/69 Pulse Oximetry 98 94 Oxygen Delivery Method Room Air Oxygen Flow Rate 0 Narrative Exam Narrative: She is alert and oriented x3. No apparent distress. Pupils are equally round reactive to light and accommodation. Extraocular muscles are intact Sclerae are pink and nonicteric Heart is irregularly irregular without murmur Lungs are clear to auscultation bilaterally There is no thyromegaly JVD is less than 6 cm No lymph nodes are felt head, neck, supraclavicular area Abdomen is soft, bowel sounds positive, nontender, no organomegaly Extremities have 1+ pitting ankle edema bilaterally Skin has no rash or jaundice Neurological exam: No tremor, cranial nerves 2-12 test intact, motor function 4/5 throughout, normal reflexes Objective Imaging CT scan - abdomen: Radiologist's impression: PROCEDURE:? CT ANGIO CHEST PE PROTOCOL ? INDICATIONS:? sob, lymphoma ? TECHNIQUE:? After the administration of intravenous contrast, 2 mm thick sections acquired from the pulmonary apices to the posterior costophrenic angles.? 3-dimensional maximum intensity projection (MIP) coronal and sagittal reformats were then acquired through the thorax.? For radiation dose reduction, the following was used:? automated exposure control, adjustment of mA and/or kV according to patient size.? ? COMPARISON:? [facility], CT, CT ABDOMEN PELVIS [facility], 08/24/2021, 12:37. ? FINDINGS:? Image quality:? Excellent.? ? Pulmonary arteries:? Numerous bilateral acute pulmonary emboli are present.? All the pulmonary emboli are peripheral.? The central pulmonary vessels are clear and are not dilated. ? Lungs and pleura:? Lungs are clear.? Calcified granuloma, extreme left lung base.? No pleural effusions or pneumothorax.? Central and peripheral airways are patent.? ? Mediastinum:? Borderline cardiomegaly.? Normal LV RV ratio.? No mediastinal or hilar adenopathy.? Thoracic aorta is normal in caliber and enhancement.? Esophagus is normal in caliber, without hiatal hernia.? ? Bones and chest wall:? Compression fractures of T6, T8, T9, T11, L1, and L2.? Ribs and thoracic spine appear intact throughout.? Thyroid gland is unremarkable as visualized..? No axillary or supraclavicular adenopathy.? ? Abdomen:? A very large necrotic right lobe liver mass is much better appreciated on the abdominal films.? Also present are malignant periportal lymph nodes. ? IMPRESSION:? ? 1. Extensive bilateral pulmonary emboli, peripheral, with no evidence of acute right heart strain. ? 2. Extensive findings of malignancy in the abdomen.? Findings seen on the chest images include a very large right lobe liver mass and malignant periportal lymph nodes. ? 3. Numerous compression fractures can either represent severe osteoporosis or potentially undiagnosis multiple myeloma. ? Comment: Findings were discussed with Dr. Vela at the time of study dictation.? ? ? Dictated by: Rober Zayas M.D. on 08/24/2021 at 13:16? Labs Result Diagrams: 08/24/21 10:15 08/24/21 10:15 Labs: Laboratory Results - last 24 hr 08/24/21 08/24/21 08/24/21 10:15 10:15 10:15 WBC 12.8 H RBC 3.64 L Hgb 9.8 L Hct 29.8 L MCV 81.7 MCH 26.8 MCHC 32.8 RDW 18.2 H Plt Count 364 Neut % (Auto) 80.2 H Lymph % (Auto) 3.5 L [place] % (Auto) 10.5 Eos % (Auto) 5.0 H Baso % (Auto) 0.8 Neut # (Auto) 46652 H Lymph # (Auto) 500 L [place] # (Auto) 1300 H Eos # (Auto) 600 H Baso # (Auto) 100 Sodium 131 L Potassium 3.1 L Chloride 92 L Carbon Dioxide 29 BUN 11 Creatinine 0.61 Estimated GFR > 60 BUN/Creatinine Ratio 18.0 Glucose 90 Calcium 7.9 L Total Bilirubin 0.9 AST 43 H ALT 12 Alkaline Phosphatase 243 H Total Creatine Kinase 26 L CK-MB (CK-2) TNP CK-MB (CK-2) Rel Index TNP Troponin I < 0.012 NT-Pro-B Natriuret Pep 847 H Total Protein 6.5 Albumin 2.8 L Globulin 3.7 Albumin/Globulin Ratio 0.8 L Lipase 36 SARS-CoV-2 (PCR) 08/24/21 08/24/21 11:00 13:00 WBC RBC Hgb Hct MCV MCH MCHC RDW Plt Count Neut % (Auto) Lymph % (Auto) [place] % (Auto) Eos % (Auto) Baso % (Auto) Neut # (Auto) Lymph # (Auto) [place] # (Auto) Eos # (Auto) Baso # (Auto) Sodium Potassium Chloride Carbon Dioxide BUN Creatinine Estimated GFR BUN/Creatinine Ratio Glucose Calcium Total Bilirubin AST ALT Alkaline Phosphatase Total Creatine Kinase CK-MB (CK-2) CK-MB (CK-2) Rel Index Troponin I < 0.012 NT-Pro-B Natriuret Pep Total Protein Albumin Globulin Albumin/Globulin Ratio Lipase SARS-CoV-2 (PCR) Negative Assessment & Plan Assessment & Plan narrative: This is a 70-year-old female with lymphoma, osteoporosis and multiple spinal compression fractures who presents with left-sided chest pain and shortness of breath for 3 days. She saw her primary care physician speech therapy assistant yesterday on [facility] who did initial testing and then today contacted her with directions to go to the emergency department. She arrived by helicopter here and has had CT scanning confirming a pulmonary embolus and what appears to be an adenocarcinoma of the right colon with probable spread into the adjacent fat, metastatic periportal adenopathy, and a very large necrotic liver metastatic lesion.? The liver metastatic lesion obstructs the right posterior intrahepatic bile ducts. Pulmonary embolus, present on admission. Active. -secondary to large colon/liver neoplasm -enoxaparin at therapeutic doses and transition to oral treatment once the path forward for her appears clearer -likely to need placement Large right lobe liver mass and malignant periportal lymph nodes, present on admission. Active. -the abdominal CT scan shows an apparent adenocarcinoma of the right colon with probable spread into the adjacent fat, metastatic periportal adenopathy, and a very large necrotic liver metastatic lesion.? The liver metastatic lesion obstructs the right posterior intrahepatic bile ducts -plan oncology consultation with Dr. Reddy, pending contact by the day hospitalist Anemia, present on admission. Active. -hemoglobin 9.8 related to obvious colon source metastatic cancer Hypokalemia, present on admission. Active. -supplement with potassium chloride, likely secondary to malnourishment of a progressive colon cancer Hyponatremia, present on admission. Active. -sodium 131, also related to malnourishment of colon cancer -follow and supplement as needed Lymphoma, present on admission. Chronic -no current treatment -followed by Dr. Reddy Her backup decision maker is her son Christian Canales who lives in [place]. She is on Lovenox for PE treatment Time Spent With Patient Critical Care time: I spent a total of [] minutes of critical care time on this patient's care today; this time is exclusive of procedural time. Quality VTE Deep Vein Thrombosis/Pulmonary Embolism Present on Admission: Yes
[2021-08-25] VITALS (13 sets, daily range): BP systolic 94–128; BP diastolic 53–72; PULSE 81–106; RESP 16–18; TEMP 36.3–38; O2SAT 91–97
--- NOTE | 2021-08-25 00:53 | PC.NURSE ---
[employer] called reported heart rate up to the 130's. Checked patient & re-assessed,, states
--- NOTE | 2021-08-25 00:56 | PC.NURSE ---
RECRUITMENT INTERN Called & reported heart rate up to 130's. Checked patient she's resting in bed, states I just got back to bed from the bathroom. Denies any dyspnea, chest pain or heart palpitations. Also stated I been eating chocolate pudding. Encouraged to get some rest & sleep. Will continue plan of care & monitor.
[2021-08-25] MEDS: PANTOPRAZOLE DR 20 MG TABLET PO (06:03)
[2021-08-25 06:04] LABS: Add Manual Diff / Slide Review NO; Basophils Absolute Auto 100 /uL (0-100); Basophils Percent Auto 0.9 % (0-2); Eosinophils Absolute Auto 800 /uL (0-450); Eosinophils Percent Auto 8.3 % (2-4); Hematocrit 29.4 % (36-46); Hemoglobin 9.8 g/dL (12.0-16.0); Lymphocytes Absolute Auto 500 /uL (1100-4500); Lymphocytes Percent Auto 5.4 % (25-40); Mean Corpuscular HGB Conc 33.4 % (30-36); Mean Corpuscular Hemoglobin 27.1 PG (26-34); Mean Corpuscular Volume 81.3 fL (80-100); Monocytes Absolute Auto 1100 /uL (0-900); Monocytes Percent Auto 12.2 % (3-14); Neutrophils Absolute Auto 6900 /uL (1500-7000); Neutrophils Percent Auto 73.2 % (50-75); Platelet Count 333 X10^3/uL (150-400); Red Blood Cell Count 3.61 X10^6/uL (4.0-5.2); Red Cell Distribution Width 17.9 % (11.6-14.8); White Blood Cell Count 9.4 X10^3/uL (4.5-11.0)
[2021-08-25] MEDS: SODIUM CHLORIDE 0.9% FLUSH 10 ML IV ×3 (06:04→22:18)
[2021-08-25 06:10] LABS: Alanine Aminotransferase 10 IU/L (<35); Albumin 2.4 g/dL (3.5-5.0); Albumin Globulin Ratio 0.7 (1.0-2.8); Alkaline Phosphatase 231 U/L (38-126); Aspartate Aminotransferase 37 IU/L (14-36); BUN Creatinine Ratio 12.5 (6-22); Bilirubin Total 0.6 mg/dL (0.2-1.3); Blood Urea Nitrogen 9 mg/dL (7-17); Calcium 7.5 mg/dL (8.4-10.2); Carbon Dioxide 34 mmol/L (22-32); Chloride 93 mmol/L (98-107); Estimated Glomerular Filt Rate > 60 mL/min (>60); Globulin 3.4 g/dL (1.7-4.1); Glucose 95 mg/dL (80-110); HEMOLYSIS < 15 (0-50); Potassium 2.9 mmol/L (3.4-5.1); Sodium 130 mmol/L (137-145); Total Protein 5.8 g/dL (6.3-8.2)
[2021-08-25] MEDS: ACETAMINOPHEN 325 MG TABLET 650 MG PO ×3 (09:07→18:13)
[2021-08-25] MEDS: POTASSIUM CHLORIDE 20 MEQ TAB PO ×2 (09:07→18:12)
[2021-08-25] MEDS: ENOXAPARIN 80 MG/0.8 ML SYRINGE 70 MG SUBCUT ×2 (09:12→22:17)
--- NOTE | 2021-08-25 09:13 | ONC.SCHED ---
Note out from Dr. Arguello confirms one-month follow-up desired. Upon accessing chart to verify orders were there and schedule, I discovered patient is admitted. Will defer scheduling until we are notified of patient's discharge. Will notify Dr. Arguello with this note.
--- NOTE | 2021-08-25 09:30 | CM.DANOTE ---
Patient is a 70 yo female who was admitted on 08/24/21 for Weakness/dehydration. Pt has [facility] and [facility] for insurance and her PCP is Wendi Peterson and Onc is Dr. Arguello at [facility]. EMR was reviewed. Per MD, pt was Medi-helicoptered off [facility] for PE and Colon CA with mets likely necrotic. PT/OT ordered and pending. SW met bedside with pt and explained role and she confirms that she lives in a small apt on [address] alone but has lots of local supportive friends and neighbors and pt has remained active and independent with ADL's. Pt drives but states she has not left the house much lately as she has felt a little weaker but also her driveway is steep and she is worried about high fall risk. Pt has continued to keep her ambulation up by walking 126 laps around her living room which equals one mile a day. Pt does not use DME at baseline but is beginning to look into [facility] with seat and SW encouraged pt to discuss with PT when they are bedside for eval. Pt states her son/JOE Gonzales lives in [place] and just found out he and his spouse are newly and this is giving pt motivation to improve medically to see her new grandchild who will be born around Apr 2022. Pt states she has had cancer since 2012 and been working with Oncology since that time. Pt states she has no hx of HH or SNF but plans to d/c home via either friend POV or [employer] free to ferry terminal and maybe use w/c via ferry staff for the ramp onto the ferry pending how she feels. Pt wants to contact [facility] to discuss further supports as they have a good group of volunteers that she feels can assist with whatever needs she has. Pt currently does not anticipate any needs at d/c. Plan: SW to follow closely after PT/OT eval and recommendations to confirm pt will have safe d/c home with friend assist when medically stable and any further identified needs. MICHELET Watson Discharge Planning/Care Management Advanced directive, confirm from FAMILY Start: 08/24/21 18:39 Freq: Q24H Status: Active Protocol: Document 08/24/21 20:00 MP (Rec: 08/24/21 23:21 MP [id number]) Advance Directive, confirm on record Time 21:00 Person contacted pt. Copy received No CM Discharge Assessment Start: 08/25/21 09:28 Freq: Status: Active Protocol: Document 08/25/21 09:28 BF (Rec: 08/25/21 09:30 BF [id number]) Discharge Planning Assessment Assigned Internet Sales Consultant MICHELET Bowles DPOA/Assigned Designee Name yu Zelaya Contact Information [phone] Advance Directives? Yes Advance Directives on File No History Provided By Patient,Medical Record Has Patient been admitted in last 30 No days? Prior Living Arrangements Apartment/Condo Household Members none Type of transporation used prior to Relies on Others admit Independent with ADL's Yes Is patient alert and oriented? Yes Caregiver for Another No Comment Pt looking to get either 4WW or FWW Barriers to Discharge No Discharge Plan Home Transportation Arrangement Pt will either ask friend for transport or use [employer] for free transport to [facility] pending how she feels Additional Comment Pt denies any current referral needs but plans to check in with [facility] at d/ c for additional supports Whiteboard Updated in Patient Room with Yes name and ext. # of Internet Sales Consultant Review Status In Process Please Provide Date Initial DC 08/25/21 Assessment Was Performed Next Review Type Continued Stay Review
--- NOTE | 2021-08-25 09:48 | OT.IP.EVAL ---
Past Medical History (Last Reviewed 08/24/21 @ 12:46 by Rosmery Vela DO) Allergies Chicken pox Chronic back pain Eczema Follicular lymphoma (~2011) Fractures Frequent UTI (~2012) H/O varicose vein ligation (~1994) Headache History of surgery (~1969) Human papilloma virus (~2012) Measles Migraines Near sighted Osteoporosis (~2013) Pulmonary embolism (~1994) Surgical History (Last Reviewed 08/24/21 @ 12:46 by Rosmery Vela DO) Anesthesia H/O varicose vein ligation (~1994) History of surgery (~1969) Status post biopsy Status post delivery (~1987) Status post dilation and curettage Status post dilation and curettage Status post loop electrosurgical excision procedure (LEEP) of cervix Occupational Therapy Inpatient Evaluation/Re-Eval M1 PT/OT-IP Prior Functional Status Start: 08/25/21 11:08 Freq: Status: Active Protocol: Document 08/25/21 11:08 (Rec: 08/25/21 11:20 [id number]) Medical Review Prior Functional Status Medical History Reviewed Yes Diet/Fluid Consistency Regular Mobility and Gait States she ambulates ~1 mi in home for exercise, has a hurry cane. Lives I'ly. Activities of Daily Living and IADL's Performs self care ADLs I'ly. Has supportive friends/ neighbors for driving/errands. Social History Household Members none Living Arrangements Apartment/Condo Number of Floors (Floors) One Floor Number of Stairs To Enter/Railing? 1 step with railing to enter Home Environment Narrow Doors Home Equipment Straight Cane M2 OT-IP Current Condition Start: 08/25/21 11:44 Freq: Status: Active Protocol: Document 08/25/21 09:11 [facility] (Rec: 08/25/21 12:03 [facility] [id number]) Occupational Therapy Current Condition Current Condition Evaluation Date 08/25/21 Treatment Diagnosis PE Diagnosis Onset Date 08/24/21 M3 OT- IP Subjective and Pain Start: 08/25/21 11:44 Freq: Status: Active Protocol: Document 08/25/21 09:11 [facility] (Rec: 08/25/21 12:03 [facility] [id number]) OT- Subjective Occupational Therapy Visit Type Type Initial Evaluation Visit Start Time 09:11 Visit Stop Time 09:42 Total Visit Minutes 31 Occupational Therapy Visit Comments Patient Comments Pt agreed to get up. Patient/Caregiver Goals To go home. OT Pain Assessment Pain When Pain Assessed At Rest Pain Present Pain Present Pain Reported Location joints and bone Intensity 4 Scale Used Numeric (0 - 10) M4 OT- IP ADL's Start: 08/25/21 11:44 Freq: Status: Active Protocol: Document 08/25/21 09:11 [facility] (Rec: 08/25/21 12:03 [facility] [id number]) OT [id number] Comments OT Self-Feeding Comments Not at meal time OT ADL-Grooming Comments OT Grooming Comments not perfromed OT ADL-Oral Care Comments Oral Care Comments not performed OT ADL-Dressing General Eval Lower Body Dressing Ability Standby Assistance Comments OT Dressing Comments Pt able to use sock aid to saul her socks, prior pt props her foot up on a stool to assist. Pt has multiple reahers at home. OT ADL-Toileting Comments OT Toileting Comments Pt not having to use the toilet; OT ADL-Bathing Comments OT Bathing Comments pt too tired to attempt a shower at this time. M5 OT- IP IADL's Start: 08/25/21 11:44 Freq: Status: Active Protocol: Document 08/25/21 09:11 [facility] (Rec: 08/25/21 12:03 [facility] [id number]) OT-Instrumental Activities of Daily Living Home Safety Awareness Awareness of Need for Assistance at Home Good Awareness Meal Preparation Meal Preparation Comments Pt states has a small refrigerator and therefore unable to freeze meals and has to cook daily. 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 M6 OT- IP Functional Cognition Start: 08/25/21 11:44 Freq: Status: Active Protocol: Document 08/25/21 09:11 [facility] (Rec: 08/25/21 12:03 [facility] [id number]) Cognitive Factors Limiting Selfcare Function Cognitive Ability Level of Alertness Alert Patient Orientation Name,Place,Situation Attention Span Ability Capable of Focused Attention, Capable of Sustained Attention Ability to Follow Commands Able to Follow One Step Commands Cognitive Comments Cognitive Assessment Comments Pt able to follow commands for ADL and mobility needs. Pt would benefit from a formal cognitive assessment. OT- Vision and Hearing OT- Hearing Assessment OT- Hearing Assessment WFL OT- Vision Assessment Visual Acuity Glasses All The Time M7 OT- IP Mobility and Balance Start: 08/25/21 11:44 Freq: Status: Active Protocol: Document 08/25/21 09:11 [facility] (Rec: 08/25/21 12:03 [facility] [id number]) OT- Bed Mobility Assessment Rolling Type of Rolling Roll to Left Level of Assistance Contact Guard Assistance Supine to Sit Supine to Sit Assist Contact Guard Assistance OT-Transfer Assessment Sit to and From Stand Sit to and from Stand Contact Guard Assistance Transfers Transfer Ability Contact Guard Assistance Technique Transfer Destination Bed,Chair Devices Transfer Assistive Devices Gait Belt,Front Wheeled Walker Comments Mobility Comments CGA to get upright and pt states to get a bed rail for her bed. Pt states normally steps on a step to get onto her high bed at home. CGA with FWW to transfer to the recliner. OT- Balance Assessment Sitting Balance and Reactions Static Sitting Balance Ability Good Dynamic Sitting Balance Ability Good Standing Balance and Reactions Static Standing Balance Ability Fair Dynamic Standing Balance Ability Fair M8 OT- IP Objective Assessments Start: 08/25/21 11:44 Freq: Status: Active Protocol: Document 08/25/21 09:11 [facility] (Rec: 08/25/21 12:03 [facility] [id number]) OT Gross Range of Motion Upper Extremity Range of Motion ROM Impairments Limited at end ranges at her shoulders. OT Strength Comments Strength Comments WFL for age and lifestyle. OT-Muscle Tone Assessment Muscle Tone WNL Yes M9 OT- IP Assessment and Plan Start: 08/25/21 11:44 Freq: Status: Active Protocol: Document 08/25/21 09:11 [facility] (Rec: 08/25/21 12:03 [facility] [id number]) OT Summary Assessment and Plan Potential Rehabilitation Potential Good Analytic Complexity at Evaluation Moderate Summary OT Impairments Pain,Range of Motion,Strength, Balance,Functional Mobility, Dressing,Toileting,Bathing, Toilet Transfers,Shower Transfers,Activity Tolerance Progress Towards Goals Slow Progress due to Activity Tolerance Assessment Summary Pt MOD complexity and main barriers are decreased activity tolerance and now needing some assist for ADl and mobility needs. Pt would benefit from short skilled rehab as pt lives alone, however if pt improves medically would benefit from home with assist and home health. Goals Grooming Goal Independent Dressing Goal Independent Toileting Goal Independent Bathing Goal Independent Toilet Transfer Goal Independent Shower Transfer Goal Independent Patient/Caregiver Education Goal Demonstrate Energy Conservation and Pacing Days to Meet Goals 7 Frequency of Treatment Frequency Of Treatment Once a Day Treatment Plan OT Treatment Plan ADL Training,Functional Mobility,Patient/Family Education,Discharge Planning Other Treatment Recommendations and Next shower/SLUMS Treatment Focus Discharge Recommendations OT Discharge Recommendations Home with Assistance,Home Health,SNF Rehab,Home vs SNF Transportation Needs at Discharge Private Vehicle,Wheelchair/ Cabulance
--- NOTE | 2021-08-25 11:21 | PT.IIE ---
Surgical History (Last Reviewed 08/24/21 @ 12:46 by Rosmery Vela DO) Anesthesia Status post biopsy Status post delivery (~1987) Status post dilation and curettage Status post dilation and curettage Status post loop electrosurgical excision procedure (LEEP) of cervix Medical History (Last Reviewed 08/24/21 @ 12:46 by Rosmery Vela DO) Allergies Chicken pox Chronic back pain Eczema Follicular lymphoma (~2011) Fractures Frequent UTI (~2012) Headache Human papilloma virus (~2012) Measles Migraines Near sighted Osteoporosis (~2013) Pulmonary embolism (~1994) Physical Therapy Inpatient Evaluation/Re-Eval M1 PT/OT-IP Prior Functional Status Start: 08/25/21 11:08 Freq: Status: Active Protocol: Document 08/25/21 11:08 [facility] (Rec: 08/25/21 11:20 [id number]) Medical Review Prior Functional Status Medical History Reviewed Yes Diet/Fluid Consistency Regular Mobility and Gait States she ambulates ~1 mi in home for exercise, has a hurry cane. Lives I'ly. Activities of Daily Living and IADL's Performs self care ADLs I'ly. Has supportive friends/ neighbors for driving/errands. Social History Household Members none Living Arrangements Apartment/Condo Number of Floors (Floors) One Floor Number of Stairs To Enter/Railing? 1 step with railing to enter Home Environment Narrow Doors Home Equipment Straight Cane M2 PT-IP Current Condition Start: 08/25/21 11:08 Freq: Status: Active Protocol: Document 08/25/21 11:08 [facility] (Rec: 08/25/21 11:20 [id number]) Physical Therapy Current Condition Current Condition Evaluation Date 08/25/21 Treatment Diagnosis Difficulty with ambulation Onset Date 08/24/21 M3 PT-IP Subjective Start: 08/25/21 11:08 Freq: Status: Active Protocol: Document 08/25/21 11:08 [facility] (Rec: 08/25/21 11:20 [id number]) Subjective Physical Therapy Visit Type Type Initial Evaluation Visit Start Time 10:32 Visit Stop Time 11:05 Total Visit Minutes 26 Physical Therapy Visit Comments Patient Comments Would like information on 4WW Patient Goals To d/c home Therapy Pain Assessment Pain Present Pain Present Denied Pain M4 PT-IP Mobility and Gait Start: 08/25/21 11:08 Freq: Status: Active Protocol: Document 08/25/21 11:08 (Rec: 08/25/21 11:20 [id number]) PT-Transfer Assessment Sit to and From Stand Sit to and from Stand Independent,Standby Assistance Equipment Transfer Assistive Device None,Gait Belt,4 Wheeled Walker Transfers Transfer Destination Chair Transfer Technique std pvt to recliner and 4WW seat Transfer Ability Level of Assist Standby Assistance Comments Mobility Comments STS with 4WW and modif I. Education on safe use of 4WW/ brakes with transfers. STS without 4WW and SBA for safety only due to initial balance. Gait Assessment Gait Gait Assistance Required: Standby Assistance Distance (Feet) 40 Assistive Devices Assistive Device Gait Belt,4 Wheeled Walker Comments Gait Comments Gait with 4WW: slow cherrie, no overt imbalance or gait deficits. Gait without 4WW: Increased forward flexed posture, furniture surfing Pt requesting to stay in room for ambulation assessment vs amb in [place] due to privacy concerns. PT-Balance Assessment Sitting Balance and Reactions Static Sitting Balance Ability Normal Dynamic Sitting Balance Ability Normal Standing Balance and Reactions Static Standing Balance Ability Good Dynamic Standing Balance Ability Good Device Used none Comments Other Balance Tests/Deviations/Treatment Maintained standing balance : during 2-3 min conversation with PT and no UE support. M5 PT-IP Objective Assessments Start: 08/25/21 11:08 Freq: Status: Active Protocol: Document 08/25/21 11:08 (Rec: 08/25/21 11:20 [id number]) Orientation Orientation/Cognition Level of Alertness Alert Orientation Name,Age,Birthday,Month,Date, Year,Day of Week,Place, Situation Language Function Ability No Deficits Noted Safety Awareness Understands Safety Issues Gross Range of Motion Lower Extremity ROM Assessment Within Functional Limits Strength Lower Extremity Strength Assessment Bilaterally Impaired Hip 4 Knee 4 Ankle 5 Comments Strength Comments Grossly 4/5 BLE strength; fatigues quickly Coordination Assessment Gross Coordination Gross Coordination WNL Sensation Assessment Sensation Gross Sensation WNL M6 PT-IP Treatment Start: 08/25/21 11:08 Freq: Status: Active Protocol: Document 08/25/21 11:08 (Rec: 08/25/21 11:20 [id number]) Physical Therapy Treatment Education Education Provided Safety Other Treatments Other Treatment Performed Education on 4WW types, components, pros/cons, safety, brake system, and sizing. Education on levels of therapy rehab vs HHPT. M7 PT-IP Assessment and Plan Start: 08/25/21 11:08 Freq: Status: Active Protocol: Document 08/25/21 11:08 (Rec: 08/25/21 11:20 [id number]) PT Summary Assessment and Plan Potential Rehabilitation Potential Excellent Summary Impairments Gait,Activity Tolerance Progress Towards Goals Progressing Toward Goals Assessment Summary Pt admitted from home with weakness and dehydration. PMHx includes colon cancers with liver mets; hx of multiple spinal fx's (osteoporosis vs pathological mets?). She lives alone in a tiny home on [address]. States she has limited living space. Has one step to enter and landlord installed a grab bar. She has friends/neighbors that she depends on for driving. Son lives in [place]. CLOF: Pt is demonstrating grossly SBA for mobility today. She was limited by low BP and symptomatic: seated 107/60; after several minutes of gait/ standing 96/58. Pt states the symptoms of dizziness/ lightheadedness have been occurring for ~ last week when she is up moving around. Pt was educated and all questions answered regarding use of 4WW . She demonstrates safe use of 4WW. Practiced sit<>stand transfers from seat of 4WW. Discussed rehab vs HHPT. Pt states she values her privacy and would prefer HHPT vs SNF. She is agreeable to seeking add'l assist in the home through the senior center. Goals Bed Mobility Goal Independent Transfer Goal Independent Gait Goal Independent Gait Distance 150 Other Goals ascend/descend single step with SBA and railing. Days to Meet Goals 3 Frequency of Treatment Frequency Of Treatment Once a Day Treatment Plan Physical Therapy Treatment Plan Bed Mobility Training,Transfer Training,Gait Training, Therapeutic Exercise,Balance Retraining,Post Op Education, Discharge Planning, Neuromuscular Re-ed Precautions Other Precautions Monitor BP Recommendations To Nursing Amount of Assist Needed Standby Assistance,1 Person Assist Discharge Recommendations PT Discharge Recommendations Home with Assistance,Home Health Transportation Needs at Discharge Private Vehicle
--- NOTE | 2021-08-25 15:53 | PM.PN.1 ---
Subjective Subjective Interval history: The patient denies any acute complaints this morning. She does endorse a recent hx of pencil-thin stools with bright red blood mixed in. She sees Dr. Reddy still for oncology follow-up, as she had a hx of lymphoma. Exam Vital Signs (past 8 hours): - 08/25/21 10:14 08/25/21 13:25 Temperature 97.6 F Pulse Rate 98 H Respiratory Rate 18 Blood Pressure 104/57 L Pulse Oximetry 91 97 Oxygen Delivery Method Room Air Oxygen Flow Rate 0 Const Other: The patient is sitting up in chair upon my entering the room, appears comfortable and in no apparent acute distress Eyes Other: No scleral icterus appreciated Resp Other: Lungs clear to auscultation bilaterally Cardio Other: RRR, with normal S1 and S2 heart sounds and no extra heart sounds or murmurs appreciated GI Other: Soft, non-distended, non-tender, bowel sounds present Skin Other: No grossly abnormal skin lesions noted Extrem Other: Palpable radial pulses bilaterally Objective Labs Result Diagrams: 08/25/21 05:40 08/25/21 05:40 Labs: Laboratory Results - last 24 hr 08/25/21 08/25/21 05:40 05:40 WBC 9.4 RBC 3.61 L Hgb 9.8 L Hct 29.4 L MCV 81.3 MCH 27.1 MCHC 33.4 RDW 17.9 H Plt Count 333 Neut % (Auto) 73.2 Lymph % (Auto) 5.4 L [place] % (Auto) 12.2 Eos % (Auto) 8.3 H Baso % (Auto) 0.9 Neut # (Auto) 6900 Lymph # (Auto) 500 L [place] # (Auto) 1100 H Eos # (Auto) 800 H Baso # (Auto) 100 Sodium 130 L Potassium 2.9 L Chloride 93 L Carbon Dioxide 34 H BUN 9 Creatinine 0.72 Estimated GFR > 60 BUN/Creatinine Ratio 12.5 Glucose 95 Calcium 7.5 L Total Bilirubin 0.6 AST 37 H ALT 10 Alkaline Phosphatase 231 H Total Protein 5.8 L Albumin 2.4 L Globulin 3.4 Albumin/Globulin Ratio 0.7 L PFSH Medical History Allergies Chicken pox Chronic back pain Eczema Follicular lymphoma (~2011) Fractures Frequent UTI (~2012) Headache Human papilloma virus (~2012) Measles Migraines Near sighted Osteoporosis (~2013) Pulmonary embolism (~1994) Surgical History Anesthesia H/O varicose vein ligation (~1994) History of surgery (~1969) Status post biopsy Status post delivery (~1987) Status post dilation and curettage Status post dilation and curettage Status post loop electrosurgical excision procedure (LEEP) of cervix Family History Father No problems noted. Mother Skin cancer Mental health problem Sister Polio Social History household members: none Smoking Status: Former smoker alcohol intake: former Assessment & Plan Assessment & Plan narrative: Assessment: 1. Bilateral PE, peripherally-based and extensive, due to likely underlying malignancy 2. Ascending colon mass, likely adenocarcinoma 3. Large, necrotic liver lesion, likely metastasis 4. Multiple vertebral compression fractures, likely metastasis 5. Hyponatremia, likely SIADH 6. Hx of lymphoma Plan: 1. Therapeutic Lovenox on-board, 1 mg/kg bid. No imaging or biomarker evidence of right heart strain. Echocardiogram pending. 2. Patient is aware to follow-up with current oncologist, Dr. Reddy, as soon as possible, and she will make an appointment for next week, to discuss options. 3. Stable, and will manage as above. 4. Stable, and will manage as above. 5. Fluid restriction on-board and will likely self-correct. 6. Patient already established with oncology for routine surveillance, follow-ups, etc. VTE prophylaxis: Therapeutic lovenox as above Code: Full code I have utilized all available immediate resources to obtain, update, or review the patient's current medications. Time Spent With Patient Critical Care time: I spent a total of [] minutes of critical care time on this patient's care today; this time is exclusive of procedural time. Quality VTE Deep Vein Thrombosis/Pulmonary Embolism Present on Admission: Yes MIPS - Admit I confirm the patient?s Advance Care Plan is present, Code status is documented, Surrogate decision maker is in patient?s record [If Yes, STOP here]: Yes
--- NOTE | 2021-08-25 16:35 | DIET.CONS ---
Dietary Consultation Note Admission Date: 08/24/2021 14:35 Assessment: 70 y/o F admitted with SOB and chest pain. Confirmed PE and liver metastasis from colon ca source. Mehreen reports her wt has been very stable. Does report recent h/o BM issues, ie pencil form, blood in March. States this has improved with soft foods, such as cottage cheese and yogurt. reports 2-3 eating occurrences per day. Denies any wt loss. EMR wt hx indicates 6.8% wt loss over 6 months (not significant). 73kg about 6 months ago, which seems a little high for her compared to other wts. Diet recall: 11a: eggs and veggies sn: yogurt or apple sauce 530p: swedish yogurt with apples and carrots ; chicken or owens with veggies ; eggs and veggies +/- croissant Beverages: water, coffee Ht: 162.56 cm Wt: 68 kg BMI: 25.7 UBW: 67-69kg reported Last BM: 08/25/21 (08/25/21 10:05) MNA: 8 Thor Score: 20 Diet: 08/24/21 Dinner Heart Healthy Diet Diet Modifications: Nutrition Percent Meal Consumed 75% 08/25/21 09:00 Percent Meal Consumed 100% 08/24/21 18:00 Labs: RBC 3.61 X10^6/uL (4.0-5.2) L 08/25/21 05:40 Hgb 9.8 g/dL (12.0-16.0) L 08/25/21 05:40 Hct 29.4 % (36-46) L 08/25/21 05:40 Creatinine 0.72 mg/dL (0.52-1.04) 08/25/21 05:40 NT-Pro-B Natriuret Pep 847 pg/mL (<125) H 08/24/21 10:15 Nutrition Diagnosis: None at this time. Interventions: Discussed overall balanced meals and eating small freq meals. Monitoring/Evaluations: consult prn Electronically Signed by: Naila Doe 08/25/21 16:35 Clinical Dietitian [address] [address]
[2021-08-25] MEDS: TRAZODONE 50 MG TABLET PO (19:30)
[2021-08-25] MEDS: MELATONIN 3 MG TABLET 6 MG PO (22:18)
[2021-08-26] VITALS (13 sets, daily range): BP systolic 104–123; BP diastolic 55–67; PULSE 85–96; RESP 15–18; TEMP 36.6–37.9; O2SAT 91–98
[2021-08-26] MEDS: PANTOPRAZOLE DR 20 MG TABLET PO (05:33)
[2021-08-26] MEDS: POTASSIUM CHLORIDE 20 MEQ TAB PO ×2 (08:56→15:44)
[2021-08-26] MEDS: ACETAMINOPHEN 325 MG TABLET 650 MG PO ×3 (09:04→20:46)
[2021-08-26] MEDS: ENOXAPARIN 80 MG/0.8 ML SYRINGE 70 MG SUBCUT ×2 (09:05→20:45)
[2021-08-26] MEDS: SODIUM CHLORIDE 0.9% FLUSH 10 ML IV ×2 (09:06→20:46)
--- NOTE | 2021-08-26 09:18 | OT.IPNOTE ---
Asked Hospitalist whether pt is appropriate for therapy today. Per Dr. Good ,discharge pt from therapy as pt still having high WBC and C-diff, therefore discharge OT eval orders.
[2021-08-26 09:25] LABS: BUN Creatinine Ratio 21.3 (6-22); Blood Urea Nitrogen 13 mg/dL (7-17); Calcium 7.7 mg/dL (8.4-10.2); Carbon Dioxide 30 mmol/L (22-32); Chloride 94 mmol/L (98-107); Estimated Glomerular Filt Rate > 60 mL/min (>60); Glucose 115 mg/dL (80-110); HEMOLYSIS < 15 (0-50); Potassium 3.2 mmol/L (3.4-5.1); Sodium 131 mmol/L (137-145)
--- NOTE | 2021-08-26 10:39 | PT.IPTN ---
Current Diagnoses Other pulmonary embolism without acute cor pulmonale (08/24/21) Physical Therapy Treatment Note M2 PT-IP Current Condition Start: 08/25/21 11:08 Freq: Status: Active Protocol: Document 08/25/21 11:08 BC (Rec: 08/25/21 11:20 BC [id number]) Physical Therapy Current Condition Current Condition Evaluation Date 08/25/21 Treatment Diagnosis Difficulty with ambulation Onset Date 08/24/21 M3 PT-IP Subjective Start: 08/25/21 11:08 Freq: Status: Active Protocol: Document 08/26/21 10:13 KS (Rec: 08/26/21 11:20 KS [id number]) Subjective Physical Therapy Visit Type Type Treatment Note Visit Start Time 10:13 Visit Stop Time 10:39 Total Visit Minutes 26 Notes Pt agreeable to working w/ therapy. Number of LEADERSHIP DEVELOPMENT MANAGER Visits 1 Physical Therapy Visit Comments Patient Goals To go to rehab to get stronger Therapy Pain Assessment Pain When Pain Assessed After Treatment Pain Present Pain Present Pain Reported Location back Scale Used not quantified Pain Management Techniques Re-positioning M4 PT-IP Mobility and Gait Start: 08/25/21 11:08 Freq: Status: Active Protocol: Document 08/26/21 10:13 KS (Rec: 08/26/21 11:20 KS [id number]) PT-Transfer Assessment Sit to and From Stand Sit to and from Stand Minimal Assistance,1 Person Assistance,Use of Upper Extremities Equipment Transfer Assistive Device Gait Belt,Front Wheeled Walker Transfers Transfer Destination Chair Transfer Technique pt ambulated w/ FWW Transfer Ability Level of Assist Minimal Assistance,1 Person Assistance,Use of Upper Extremities Comments Mobility Comments Pt in chair upon arrival and willing to try ambulating further today. Pt required increased time to scoot to EOC due to weakness and Min A and cues for hand placement for sit<>stand. Pt then ambulated ~15 ft w/ FWW w/ cues for FWW management. Decreased stride and foot clearance due and pt unable to tolerate further gait distance d/t weakness and decreased activity tolerance. Upon return to chair, pt able to tolerate standing for BP readin/62 and then sat back in chair needing Min A to reposition. Pt left in chair w/ all needs in reach. Gait Assessment Gait Gait Assistance Required: Minimum Assistance,1 Person Assist Distance (Feet) 15 Assistive Devices Assistive Device Gait Belt,Front Wheeled Walker Gait Deviations General Gait Pattern Decreased Stride Length, Decreased Feet Clearance, Flexed Trunk Factors Limiting Gait Function Factors Limiting Gait Function Decreased Activity Tolerance, Decreased Strength,Poor Balance Comments Gait Comments Pt w/ slow cherrie and decreased stride and minimal foot clearance w/ flexed trunk . Pt states more comfortable w / FWW at this time to conserve energy and assist w/ balance. States she is normally able to tolerate further ambulation distance but feeling weaker. PT-Balance Assessment Sitting Balance and Reactions Static Sitting Balance Ability Good Dynamic Sitting Balance Ability Good Standing Balance and Reactions Static Standing Balance Ability Good Dynamic Standing Balance Ability Fair Device Used FWW M5 PT-IP Objective Assessments Start: 08/25/21 11:08 Freq: Status: Active Protocol: Document 08/25/21 11:08 BC (Rec: 08/25/21 11:20 BC [id number]) Orientation Orientation/Cognition Level of Alertness Alert Orientation Name,Age,Birthday,Month,Date, Year,Day of Week,Place, Situation Language Function Ability No Deficits Noted Safety Awareness Understands Safety Issues Gross Range of Motion Lower Extremity ROM Assessment Within Functional Limits Strength Lower Extremity Strength Assessment Bilaterally Impaired Hip 4 Knee 4 Ankle 5 Comments Strength Comments Grossly 4/5 BLE strength; fatigues quickly Coordination Assessment Gross Coordination Gross Coordination WNL Sensation Assessment Sensation Gross Sensation WNL M6 PT-IP Treatment Start: 08/25/21 11:08 Freq: Status: Active Protocol: Document 08/26/21 10:13 KS (Rec: 08/26/21 11:20 KS [id number]) Physical Therapy Treatment Education Education Provided Safety M7 PT-IP Assessment and Plan Start: 08/25/21 11:08 Freq: Status: Active Protocol: Document 08/26/21 10:13 KS (Rec: 08/26/21 11:20 KS [id number]) PT Summary Assessment and Plan Potential Rehabilitation Potential Excellent Summary Impairments Strength,Gait,Activity Tolerance Progress Towards Goals Progressing Toward Goals Assessment Summary Pt limited by weakness and low tolerance for activity today. Min A for sit<>stand w/ FWW and only able to tolerate ~15 ft ambulation which is far from her baseline. Pt requires increased time and rest breaks between completing mobility tasks. Pt aware she is weaker and needing increased assistance. At this time, she is unsafe to return home and will require SNF to improve strength, activity tolerance, and functional mobility independence. Goals Bed Mobility Goal Independent Transfer Goal Independent Gait Goal Independent Gait Distance 150 Other Goals ascend/descend single step with SBA and railing. Days to Meet Goals 3 Frequency of Treatment Frequency Of Treatment Once a Day Treatment Plan Physical Therapy Treatment Plan Bed Mobility Training,Transfer Training,Gait Training, Therapeutic Exercise,Balance Retraining,Post Op Education, Discharge Planning, Neuromuscular Re-ed Precautions Other Precautions Monitor BP Recommendations To Nursing Amount of Assist Needed 1 Person Assist Discharge Recommendations PT Discharge Recommendations SNF Rehab Transportation Needs at Discharge Wheelchair/Cabulance
--- NOTE | 2021-08-26 12:07 | P.PN_ITS ---
Subjective Subjective Interval history: The patient denies any acute sxs this morning. However, after working with PT/OT, she's more inclined to be discharged to SNF, based on their recommendation. Exam Vital Signs (past 8 hours): - 08/26/21 05:28 08/26/21 07:43 08/26/21 11:00 Temperature 99.6 F 98.8 F 99.9 F H Pulse Rate 96 H 91 H 94 H Respiratory Rate 15 18 18 Blood Pressure 110/59 L 104/67 104/55 L Pulse Oximetry 94 95 95 Oxygen Delivery Method Room Air Oxygen Flow Rate 0 Narrative Exam Narrative: Const Other: The patient is sitting up in chair upon my entering the room, appears comfortable and in no apparent acute distress, working with PT Eyes Other: No scleral icterus appreciated Resp Other: Lungs clear to auscultation bilaterally Cardio Other: RRR, with normal S1 and S2 heart sounds and no extra heart sounds or murmurs appreciated GI Other: Soft, non-distended, non-tender, bowel sounds present Skin Other: No grossly abnormal skin lesions noted Extrem Other: Palpable radial pulses bilaterally Objective Labs Result Diagrams: 08/25/21 05:40 08/26/21 08:45 Labs: Laboratory Results - last 24 hr 08/26/21 08:45 Sodium 131 L Potassium 3.2 L Chloride 94 L Carbon Dioxide 30 BUN 13 Creatinine 0.61 Estimated GFR > 60 BUN/Creatinine Ratio 21.3 Glucose 115 H Calcium 7.7 L Magnesium 2.0 PFSH Medical History Allergies Chicken pox Chronic back pain Eczema Follicular lymphoma (~2011) Fractures Frequent UTI (~2012) Headache Human papilloma virus (~2012) Measles Migraines Near sighted Osteoporosis (~2013) Pulmonary embolism (~1994) Surgical History Anesthesia H/O varicose vein ligation (~1994) History of surgery (~1969) Status post biopsy Status post delivery (~1987) Status post dilation and curettage Status post dilation and curettage Status post loop electrosurgical excision procedure (LEEP) of cervix Family History Father No problems noted. Mother Skin cancer Mental health problem Sister Polio Social History household members: none Smoking Status: Former smoker alcohol intake: former Assessment & Plan Assessment & Plan narrative: Assessment: 1. Bilateral PE, peripherally-based and extensive, due to likely underlying malignancy 2. Ascending colon mass, likely adenocarcinoma 3. Large, necrotic liver lesion, likely metastasis 4. Multiple vertebral compression fractures, likely metastasis 5. Hyponatremia, likely SIADH 6. Hx of lymphoma Plan: 1. Therapeutic Lovenox on-board, 1 mg/kg bid. No imaging or biomarker evidence of right heart strain. Echocardiogram results pending. 2. Patient is aware to follow-up with current oncologist, Dr. Reddy, as soon as possible, and she will make an appointment for next week, to discuss options. PT/OT recommends SNF, and patient amenable to this. 3. Stable, and will manage as above. 4. Stable, and will manage as above. 5. Fluid restriction on-board and will likely self-correct. 6. Patient already established with oncology for routine surveillance, follow- ups, etc. VTE prophylaxis: Therapeutic lovenox as above Time Spent With Patient Critical Care time: I spent a total of [] minutes of critical care time on this patient's care today; this time is exclusive of procedural time. Quality VTE Deep Vein Thrombosis/Pulmonary Embolism Present on Admission: Yes
--- NOTE | 2021-08-26 13:14 | OT.IP.TRT ---
Current Diagnoses Other pulmonary embolism without acute cor pulmonale (08/24/21) Occupational Therapy Treatment Note M2 OT-IP Current Condition Start: 08/25/21 11:44 Freq: Status: Active Protocol: Document 08/25/21 09:11 [facility] (Rec: 08/25/21 12:03 [facility] [id number]) Occupational Therapy Current Condition Current Condition Evaluation Date 08/25/21 Treatment Diagnosis PE Diagnosis Onset Date 08/24/21 M3 OT- IP Subjective and Pain Start: 08/25/21 11:44 Freq: Status: Active Protocol: Document 08/26/21 13:16 [facility] (Rec: 08/26/21 13:26 [facility] [id number]) OT- Subjective Occupational Therapy Visit Type Type Treatment Note Visit Start Time 12:49 Visit Stop Time 13:14 Total Visit Minutes 25 Occupational Therapy Visit Comments Patient Comments Pt not wanting to get up as too tired but agreed to talk about energy conservation and do SLUMS. Patient/Caregiver Goals Pt now feeling that it would be best to go to skilled rehab at this time versus going home yet. OT Pain Assessment Pain When Pain Assessed At Rest Pain Present Pain Present Denied Pain M6 OT- IP Functional Cognition Start: 08/25/21 11:44 Freq: Status: Active Protocol: Document 08/26/21 13:16 [facility] (Rec: 08/26/21 13:26 [facility] [id number]) Cognitive Factors Limiting Selfcare Function Cognitive Ability Level of Alertness Alert Patient Orientation Name,Place,Situation Attention Span Ability Capable of Focused Attention, Capable of Sustained Attention Ability to Follow Commands Able to Follow One Step Commands Memory Description Short Term Impaired Cognitive Tests SLUMS Pt scored 20/30 which implies borderline mild cognitive disorders/dementia. Pt agreed that she has not been thinking well lately and usually has difficulty to get he words out and has to make lists for herself to do at home. Pt admits at times she forgets to take her medications. Pt only able to states 8 animals in one minute , able to recall 3/5 objects after time passed, and only able to answer 1/4 questions right after a paragraph read. Pt is easily distracted. Pt states as soon as she heard the city [place] in the paragraph forgot about all the other details from the paragraph. Cognitive Comments Cognitive Assessment Comments Able to go over energy conservation strategies with the pt. Pt now thinking about looking to get more assist from senior center on [address] and maybe look into Meals on Wheels as well. M7 OT- IP Mobility and Balance Start: 08/25/21 11:44 Freq: Status: Active Protocol: Document 08/25/21 09:11 [facility] (Rec: 08/25/21 12:03 [facility] [id number]) OT- Bed Mobility Assessment Rolling Type of Rolling Roll to Left Level of Assistance Contact Guard Assistance Supine to Sit Supine to Sit Assist Contact Guard Assistance OT-Transfer Assessment Sit to and From Stand Sit to and from Stand Contact Guard Assistance Transfers Transfer Ability Contact Guard Assistance Technique Transfer Destination Bed,Chair Devices Transfer Assistive Devices Gait Belt,Front Wheeled Walker Comments Mobility Comments CGA to get upright and pt states to get a bed rail for her bed. Pt states normally steps on a step to get onto her high bed. CGA with FWW to transfer to the recliner. OT- Balance Assessment Sitting Balance and Reactions Static Sitting Balance Ability Good Dynamic Sitting Balance Ability Good Standing Balance and Reactions Static Standing Balance Ability Fair Dynamic Standing Balance Ability Fair M8 OT- IP Objective Assessments Start: 08/25/21 11:44 Freq: Status: Active Protocol: Document 08/25/21 09:11 [facility] (Rec: 08/25/21 12:03 [facility] [id number]) OT Gross Range of Motion Upper Extremity Range of Motion ROM Impairments Limited at end ranges at her shoulders. OT Strength Comments Strength Comments WFL for age and lifestyle. OT-Muscle Tone Assessment Muscle Tone WNL Yes M9 OT- IP Assessment and Plan Start: 08/25/21 11:44 Freq: Status: Active Protocol: Document 08/26/21 13:16 [facility] (Rec: 08/26/21 13:26 [facility] [id number]) OT Summary Assessment and Plan Potential Rehabilitation Potential Good Analytic Complexity at Evaluation Moderate Summary OT Impairments Pain,Range of Motion,Strength, Balance,Functional Mobility, Dressing,Toileting,Bathing, Toilet Transfers,Shower Transfers,Activity Tolerance Progress Towards Goals Slow Progress due to Activity Tolerance,Slow Progress due to Cognition Assessment Summary Pt too tired to get up at this time but agreed to go over energy conservation and do the SLUMS which she scored 20/30 implying borderline dementia/ mild cognitive deficits. Pt noted today left eye twitching and left side on her mouth slightly droops. Pt states has had that since 2000, but states was not from a neurological event and her eye twitches more when she is tired and stressed. Pt will greatly benefit from skilled rehab prior to going home. Goals Grooming Goal Independent Dressing Goal Independent Toileting Goal Independent Bathing Goal Independent Toilet Transfer Goal Independent Shower Transfer Goal Independent Patient/Caregiver Education Goal Demonstrate Energy Conservation and Pacing Days to Meet Goals 20 Frequency of Treatment Frequency Of Treatment Once a Day Treatment Plan OT Treatment Plan ADL Training,Functional Mobility,Patient/Family Education,Discharge Planning Other Treatment Recommendations and Next shower Treatment Focus Discharge Recommendations OT Discharge Recommendations SNF Rehab Transportation Needs at Discharge Wheelchair/Cabulance
--- NOTE | 2021-08-26 14:39 | PC.NURSE ---
pt up in chair, denies pain. Verbally educated pt on how to inject Lovenox. Pt states she has had to administer injection to self before. Lungs with crackles which pt states I always have that.
--- NOTE | 2021-08-26 15:03 | CM.DPC ---
DCP Note Per OT and PT, SNF rehab is recommended due to patient's exhaustion and increased generalized weakness. FACILITY PLANNER calls Lien at [facility] and it is reported that there may be an opening for tomorrow 08/27/21, FACILITY PLANNER faxes clinicals for review. [facility] would be ideal location for patient's rehab due to patient's regular f/u with [facility]. Per PT, patient is agreeable to SNF rehab. Plan: F/u with [facility],continue to f/u with PT and OT, seek SNF rehab bed for patient upon d/c. MICHELET Pelaez
--- NOTE | 2021-08-26 16:00 | DI.ECHO.S_ITS ---
[facility]---------+ [facility] +---------+ : : [address] : : : : [id number] : : : : Phone: [phone]+ Echocardiogram Report + + :Name: PHYLLIS HARDY Study Date: 08/26/2021 Height: 64 in : :[facility] ReadingLocation: Weight: 149 lb : : Gender: Female BSA: 1.7 m2 : :: 1950 Age: 70 yrs BP: 104/55 mmHg: :Reason For Study: Pulmonary- Embolism : : Performed By: Marianela Peters : :Referring: UNSPECIFIED : + + Interpretation Summary The left ventricle is normal in size and wall thickness. Left ventricular systolic function appears normal without focal wall motion abnormalities. The ejection fraction is estimated to be 55-60%. Diastolic parameters suggest a relaxation abnormality of the left ventricle, consistent with probable normal filling pressures. The right ventricle is normal in size and function. The right ventricular systolic pressure is estimated to be at least 36 mmHg based on an estimated right atrial pressure of 8 mm Hg. Both atria are normal in size. There is no significant valvular heart disease. The aortic root is mildly dilated. The ascending aorta is mildly enlarged. Procedure: A two-dimensional transthoracic echocardiogram with color flow and Doppler was performed. The study quality was technically adequate. There is no prior echocardiogram noted for this patient. The patient was in normal sinus rhythm during the exam. The patient had frequent PACs during the exam. The patient had occasional PVCs during the exam. Left Ventricle: The left ventricle is normal in size and wall thickness. There is no ventricular septal defect visualized. Left ventricular systolic function appears normal without focal wall motion abnormalities. The ejection fraction is estimated to be 55-60%. Diastolic parameters suggest a relaxation abnormality of the left ventricle, consistent with probable normal filling pressures. Right Ventricle: The right ventricle is normal in size and function. Atria: Both atria are normal in size. There is no Doppler evidence for an interatrial shunt. Mitral Valve: The mitral valve is normal in structure and function. There is trace mitral regurgitation. Aortic Valve: The aortic valve is trileaflet. There is mildly reduced leaflet mobility. There is no aortic valve stenosis. No aortic regurgitation is present. Tricuspid Valve: The tricuspid valve leaflets are thin and pliable. There is trace tricuspid regurgitation. The right ventricular systolic pressure is estimated to be at least 36 mmHg based on an estimated right atrial pressure of 8 mm Hg. Pulmonic Valve: The pulmonic valve is not well visualized. There is no significant valvular heart disease. Great Vessels: The aortic root is mildly dilated. The ascending aorta is mildly enlarged. The aortic arch is normal in size. The IVC is dilated (diameter is greater than 2.1 cm) yet it collapses greater than 50% with a sniff. This suggests a right atrial pressure of 8 mm Hg. Pericardium/ Pleura There is no pericardial effusion. MMode/2D Measurements & Calculations LVIDd: 4.4 cm LVOT diam: 2.1 cm LVIDs: 2.8 cm Ao root diam: 4.0 cm FS: 35.3 % asc Aorta Diam: 3.7 cm IVSd: 0.82 cm Ao Arch Diam (Prox Trans): 2.4 cm LVPWd: 0.73 cm LV chau. diameter/BSA (cm/m^2): 2.5 LV sys. diameter/BSA (cm/m^2): 1.6 LA A2 area: 16.5 cm2 RA long axis: 4.8 cm LA A4 area: 14.1 cm2 RA area: 10.8 cm2 LA length (vol): 5.0 cm RA vol: 20.7 ml LA vol: 39.6 ml RA : 12.0 ml/m2 LA vol index: 22.9 ml/m2 IVC diam: 2.5 cm RVD1 (basal): 3.4 cm TAPSE: 2.2 cm Doppler Measurements & Calculations Ao V2 max: 113.6 cm/sec LVOT Max Alvin: 99.9 cm/sec Ao V2 mean: 72.6 cm/sec LV V1 max P.0 mmHg Ao max P.2 mmHg LV V1 VTI: 16.0 cm Ao mean P.4 mmHg JOE(I,D): 3.0 cm2 Ao V2 VTI: 18.0 cm JOE(V,D): 3.0 cm2 sev ratio: 0.89 JOE indexed to BSA (cm^2/m^2): 1.8 MV E max alvin: 54.1 cm/sec TR max alvin: 266.6 cm/sec MV A max alvin: 74.3 cm/sec TR max P.4 mmHg MV E/A: 0.73 PA V2 max: 67.0 cm/sec Med Peak E' Alvin: 7.2 cm/sec PA V2 mean: 44.4 cm/sec E/E' med: 7.5 PA mean P.90 mmHg Lat Peak E' Alvin: 9.6 cm/sec PA pr(Accel): 41.3 mmHg E/E' lat: 5.6 E/e' average: 6.6 MV dec time: 0.30 sec SV(LVOT): 54.7 ml Reading Physician:04:44 PM
[2021-08-26] MEDS: MELATONIN 3 MG TABLET 6 MG PO (20:46)
[2021-08-26] MEDS: TRAZODONE 50 MG TABLET PO (20:46)
[2021-08-27] VITALS (8 sets, daily range): BP systolic 91–115; BP diastolic 53–64; PULSE 88–101; RESP 14–22; TEMP 36.7–37.1; O2SAT 94–97
[2021-08-27] MEDS: PANTOPRAZOLE DR 20 MG TABLET PO (07:00)
[2021-08-27] MEDS: ACETAMINOPHEN 325 MG TABLET 650 MG PO ×3 (08:09→20:35)
[2021-08-27] MEDS: SODIUM CHLORIDE 0.9% FLUSH 10 ML IV ×3 (08:10→20:37)
[2021-08-27] MEDS: POTASSIUM CHLORIDE 20 MEQ TAB PO (08:10)
[2021-08-27] MEDS: ENOXAPARIN 80 MG/0.8 ML SYRINGE 70 MG SUBCUT ×2 (08:11→20:36)
[2021-08-27 08:28] LABS: BUN Creatinine Ratio 17.5 (6-22); Blood Urea Nitrogen 11 mg/dL (7-17); Calcium 7.8 mg/dL (8.4-10.2); Carbon Dioxide 33 mmol/L (22-32); Chloride 95 mmol/L (98-107); Estimated Glomerular Filt Rate > 60 mL/min (>60); Glucose 102 mg/dL (80-110); HEMOLYSIS < 15 (0-50); Potassium 3.4 mmol/L (3.4-5.1); Sodium 132 mmol/L (137-145)
--- NOTE | 2021-08-27 10:42 | CM.DPC ---
Addendum entered by Agueda Garay R.N. 08/27/21 11:58: Spoke to patient, introduced self and role. She was sitting up in her chair on her laptop. Updated patient that [facility] can accept tomorrow and roll picker time 11:30. She is aware, and appreciative of care. Updated white board for patient with name of this [place] Deputy Prosecuting Attorney, and time of roll picker with tomorrow's date. Placed order for COVID swab as well. Confirmed that patient resides on [address] alone, has supportive friends, and plans to go home after rehab. Original Note: DCP Cont: The plan is for patient to go to [facility]. Checked in earlier with Lien at [facility]. She had indicated, she should be able to take patient today, but need to ensure that she does not need any chemo meds while there. Did let Lien know that this [place] Deputy Prosecuting Attorney will discuss at team rounds. Discussed patient during team rounds. Dr. Ovalle indicated that she will not need chemo meds, she has seen Dr. Arguello. He mentioned that patient may be ready for discharge today. Found out from MICHELET Cowan, that [facility] can only take one patient today, and they will be taking an alternate patient. Called [facility], left message, [facility] Bojor[facility] has no admit nurse this weekend, and [facility], has no admissions this weekend. [facility] did indicate that they can accept patient tomorrow at 11:30. Dr. Ovalle was updated. P: DCP to continue to follow. Will check in with patient about [facility] to ensure that this is the plan, and will also check in with [facility]. Agueda Garay RN/[employer]
--- NOTE | 2021-08-27 10:42 | PT-IP ANOTE ---
Pt declined working with PT at this time due to exhaustion from transferring from bed to chair and doing ankle pumps and seated heel raises from the chair. Agreed for PT to check back with her after one hour.
--- NOTE | 2021-08-27 12:47 | PT.IPTN ---
Current Diagnoses Other pulmonary embolism without acute cor pulmonale (08/24/21) Physical Therapy Treatment Note M2 PT-IP Current Condition Start: 08/25/21 11:08 Freq: Status: Active Protocol: Document 08/25/21 11:08 BC (Rec: 08/25/21 11:20 BC [id number]) Physical Therapy Current Condition Current Condition Evaluation Date 08/25/21 Treatment Diagnosis Difficulty with ambulation Onset Date 08/24/21 M3 PT-IP Subjective Start: 08/25/21 11:08 Freq: Status: Active Protocol: Document 08/27/21 12:17 NBM (Rec: 08/27/21 13:40 NB [id number]) Subjective Physical Therapy Visit Type Type Treatment Note Visit Start Time 12:17 Visit Stop Time 12:47 Total Visit Minutes 30 Notes Pt agreeable to working w/ therapy. Number of AGILE QA TESTER Visits 2 Physical Therapy Visit Comments Patient Goals To go to rehab to get stronger Therapy Pain Assessment Pain When Pain Assessed After Treatment Pain Present Pain Present Denied Pain M4 PT-IP Mobility and Gait Start: 08/25/21 11:08 Freq: Status: Active Protocol: Document 08/27/21 12:17 NBM (Rec: 08/27/21 13:40 [facility] [id number]) PT-Transfer Assessment Sit to and From Stand Sit to and from Stand Minimal Assistance,1 Person Assistance,Use of Upper Extremities Equipment Transfer Assistive Device Gait Belt,Front Wheeled Walker Transfers Transfer Destination Chair Transfer Technique pt ambulated w/ FWW Transfer Ability Level of Assist Minimal Assistance,1 Person Assistance,Use of Upper Extremities Comments Mobility Comments Pt in chair upon arrival and willing to try ambulating further today. VS: Sitting: BP 100/57 97% SO2, Standing: BP 122/67 98% SO2. Non- symptomatic throughout treatment. Min A and cues for hand placement for sit<>stand. Pt ambulated CGA ~25 ft w/ FWW w/ cues for FWW management and upright posture. Decreased stride and foot clearance noted. Pt unable to tolerate further gait distance d/t weakness and decreased activity tolerance. Upon return to chair, pt able to complete seated ankle pumps x 10 B, LAQ x 10 ea, and sit<> stand x 5. She sat back in chair needing Min A to reposition. VS end of treatment: Sittin/67 96% SO2. Pt left in chair w/ all needs in reach. Gait Assessment Gait Gait Assistance Required: Minimum Assistance,1 Person Assist Distance (Feet) 25 Assistive Devices Assistive Device Gait Belt,Front Wheeled Walker Gait Deviations General Gait Pattern Decreased Stride Length, Decreased Feet Clearance, Flexed Trunk Factors Limiting Gait Function Factors Limiting Gait Function Decreased Activity Tolerance, Decreased Strength,Poor Balance Comments Gait Comments Pt w/ slow cherrie, decreased stride length and minimal foot clearance w/ flexed trunk. PT-Balance Assessment Sitting Balance and Reactions Static Sitting Balance Ability Good Dynamic Sitting Balance Ability Good Standing Balance and Reactions Static Standing Balance Ability Good Dynamic Standing Balance Ability Fair Device Used FWW M5 PT-IP Objective Assessments Start: 08/25/21 11:08 Freq: Status: Active Protocol: Document 08/25/21 11:08 (Rec: 08/25/21 11:20 [id number]) Orientation Orientation/Cognition Level of Alertness Alert Orientation Name,Age,Birthday,Month,Date, Year,Day of Week,Place, Situation Language Function Ability No Deficits Noted Safety Awareness Understands Safety Issues Gross Range of Motion Lower Extremity ROM Assessment Within Functional Limits Strength Lower Extremity Strength Assessment Bilaterally Impaired Hip 4 Knee 4 Ankle 5 Comments Strength Comments Grossly 4/5 BLE strength; fatigues quickly Coordination Assessment Gross Coordination Gross Coordination WNL Sensation Assessment Sensation Gross Sensation WNL M6 PT-IP Treatment Start: 08/25/21 11:08 Freq: Status: Active Protocol: Document 08/27/21 12:17 [facility] (Rec: 08/27/21 13:40 [facility] [id number]) Physical Therapy Treatment Education Education Provided Safety M7 PT-IP Assessment and Plan Start: 08/25/21 11:08 Freq: Status: Active Protocol: Document 08/27/21 12:17 [facility] (Rec: 08/27/21 13:40 [facility] [id number]) PT Summary Assessment and Plan Potential Rehabilitation Potential Excellent Goals Bed Mobility Goal Independent Transfer Goal Independent Gait Goal Independent Gait Distance 150 Other Goals ascend/descend single step with SBA and railing. Days to Meet Goals 3 Frequency of Treatment Frequency Of Treatment Once a Day Treatment Plan Physical Therapy Treatment Plan Bed Mobility Training,Transfer Training,Gait Training, Therapeutic Exercise,Balance Retraining,Post Op Education, Discharge Planning, Neuromuscular Re-ed Precautions Other Precautions Monitor BP Recommendations To Nursing Amount of Assist Needed 1 Person Assist Discharge Recommendations PT Discharge Recommendations SNF Rehab Transportation Needs at Discharge Wheelchair/Cabulance
[2021-08-27 14:49] LABS: COVID19 -Nasal RAPID Negative (Negative)
--- NOTE | 2021-08-27 14:52 | PM.PN.1 ---
Subjective Subjective Date Patient Seen: 08/27/21 Interval history: 70-year-old female with history of lymphoma presented with complaints of left-sided chest pain and shortness of breath, found to have extensive bilateral PE, as well as metastatic malignancy in her abdomen. Patient notes resolution of chest pain. Denies abdominal pain. Still with some difficulty taking deep breaths. Not needing supplemental O2. She needs conditioning rehab and agrees to SNF which is set up for tomorrow. Exam Vital Signs (past 8 hours): - 08/27/21 08:00 08/27/21 12:00 08/27/21 14:30 Temperature 98.5 F 98.1 F Pulse Rate 94 H 88 Respiratory Rate 17 20 Blood Pressure 110/60 101/61 Pulse Oximetry 95 96 96 Oxygen Delivery Method Room Air Oxygen Flow Rate 0 Narrative Exam Narrative: General: Alert, NAD Lungs: Fine bibasilar crackles likely atelectasis Heart: Regular rhythm Extremities: No distal edema Neurological: Affect and speech normal Objective Labs Result Diagrams: 08/25/21 05:40 08/27/21 08:08 Labs: Laboratory Results - last 24 hr 08/27/21 08/27/21 08:08 14:30 Sodium 132 L Potassium 3.4 Chloride 95 L Carbon Dioxide 33 H BUN 11 Creatinine 0.63 Estimated GFR > 60 BUN/Creatinine Ratio 17.5 Glucose 102 Calcium 7.8 L SARS-CoV-2 (PCR) Negative [facility] Medical History Allergies Chicken pox Chronic back pain Eczema Follicular lymphoma (~2011) Fractures Frequent UTI (~2012) Headache Human papilloma virus (~2012) Measles Migraines Near sighted Osteoporosis (~2013) Pulmonary embolism (~1994) Surgical History Anesthesia H/O varicose vein ligation (~1994) History of surgery (~1969) Status post biopsy Status post delivery (~1987) Status post dilation and curettage Status post dilation and curettage Status post loop electrosurgical excision procedure (LEEP) of cervix Family History Father No problems noted. Mother Skin cancer Mental health problem Sister Polio Social History household members: none Smoking Status: Former smoker alcohol intake: former Assessment & Plan Assessment & Plan narrative: 1. Bilateral PE, peripherally-based and extensive, due to likely underlying malignancy 2. Ascending colon mass, likely adenocarcinoma 3. Large, necrotic liver lesion, likely metastasis 4. Multiple pathologic vertebral compression fractures, likely osteoporosis related, patient had been on Forteo until recently 5. Hyponatremia, mild, stable > 130 6. Hx of lymphoma 7. Hypokalemia, corrected Plan: 1. Therapeutic Lovenox on-board, 1 mg/kg bid. No imaging or biomarker evidence of right heart strain. Echocardiogram without right heart strain. Recommend switch to Eliquis on discharge. 2. Patient is aware to follow-up with current oncologist, Dr. Reddy, as soon as possible, and she will make an appointment for next week, to discuss options. PT/OT recommends SNF, and patient amenable to this. 3. Follow-up oncology for liver lesion secondary to abdominal malignancy 4. She is not requiring medication for pain control, she is established with Endocrinology for history of osteoporosis compression fractures 5. Hyponatremia stable 6. Patient already established with oncology for routine surveillance of lymphoma 7. Discontinued oral potassium 08/27 VTE prophylaxis: Therapeutic lovenox as above Discharged to SNF planned for tomorrow, Saturday. Time Spent With Patient Critical Care time: I spent a total of [] minutes of critical care time on this patient's care today; this time is exclusive of procedural time. Quality VTE Deep Vein Thrombosis/Pulmonary Embolism Present on Admission: Yes
[2021-08-27] MEDS: MELATONIN 3 MG TABLET 6 MG PO (20:34)
[2021-08-28 01:45] VITALS: BP 115/64; PULSE 97; RESP 22; TEMP 36.9; O2SAT 94
[2021-08-28 02:00] VITALS: O2SAT 94
[2021-08-28 06:00] VITALS: O2SAT 95
[2021-08-28 06:11] VITALS: BP 105/64; PULSE 82; RESP 16; TEMP 36.9; O2SAT 95
[2021-08-28 07:31] VITALS: O2SAT 95
[2021-08-28 07:45] VITALS: BP 118/67; PULSE 88; RESP 16; TEMP 37.2; O2SAT 97
[2021-08-28] MEDS: SODIUM CHLORIDE 0.9% FLUSH 10 ML IV (08:50)
[2021-08-28] MEDS: ENOXAPARIN 80 MG/0.8 ML SYRINGE 70 MG SUBCUT (08:51)
[2021-08-28] MEDS: ACETAMINOPHEN 325 MG TABLET 650 MG PO (08:56)
--- NOTE | 2021-08-28 10:37 | PM.DS.1 ---
History of Present Illness History of Present Illness Chief complaint: Weakness/dehydration Narrative: This is a 70-year-old female with lymphoma, osteoporosis and multiple spinal compression fractures who presents with left-sided chest pain and shortness of breath for 3 days.? She saw her primary care physician social services assistant yesterday on [facility] who did initial testing and then today contacted her with directions to go to the emergency department.? She arrived by helicopter here and has had CT scanning confirming a pulmonary embolus and a Liver Metastasis from an apparent right Colon Cancer source.? She did have a PE once before in 1994 after vein surgery.? She has had no fevers, coughing, abdominal pain, bleeding, rash. Discharge Providers Provider Date of admission: 08/24/21 14:35 Discharge Date: 08/28/21 Primary care physician: Wendi Peterson PA-C Consults: 08/24/21 17:46 Consult to Occupational Therapy Evaluate & Treat Comment: Physician Instructions: Evaluate and treat Consult to Physical Therapy Evaluate & Treat Comment: Physician Instructions: Evaluate and Treat 08/24/21 18:38 Consult to Dietitian, Adult Routine Comment: Reason For Exam: Decreased weight and food intake 08/26/21 12:02 Consult to Occupational Therapy Evaluate & Treat Comment: Physician Instructions: Evaluate and treat Discharge provider: Kirti Estrella MD Summary Hospital Course Discharge Diagnosis: Pulmonary embolism is setting of lymphoma and new colon mass with metastasis to liver. Status at Discharge Cognitive/behavioral status at discharge: oriented Exam Vital Signs (past 8 hours): - 08/28/21 06:00 08/28/21 06:11 08/28/21 07:31 Temperature 98.4 F Pulse Rate 82 Respiratory Rate 16 Blood Pressure 105/64 Pulse Oximetry 95 95 95 08/28/21 07:45 Temperature 99.0 F Pulse Rate 88 Respiratory Rate 16 Blood Pressure 118/67 Pulse Oximetry 97 Oxygen Delivery Method Room Air Oxygen Flow Rate 0 Objective Labs Result Diagrams: 08/25/21 05:40 08/27/21 08:08 Labs: Laboratory Results - last 24 hr 08/27/21 14:30 SARS-CoV-2 (PCR) Negative [facility] Medical History Allergies Chicken pox Chronic back pain Eczema Follicular lymphoma (~2011) Fractures Frequent UTI (~2012) Headache Human papilloma virus (~2012) Measles Migraines Near sighted Osteoporosis (~2013) Pulmonary embolism (~1994) Surgical History Anesthesia H/O varicose vein ligation (~1994) History of surgery (~1969) Status post biopsy Status post delivery (~1987) Status post dilation and curettage Status post dilation and curettage Status post loop electrosurgical excision procedure (LEEP) of cervix Family History Father No problems noted. Mother Skin cancer Mental health problem Sister Polio Social History household members: none Smoking Status: Former smoker alcohol intake: former Discharge Plan Discharge Plan Patient Disposition: Xfer Inpatient Rehab [facility]: [facility] Discharge orders & Medications Discharge Orders: Discharge (Order); Ordered 08/28/21 Ordered By: Kirti Estrella Prescriptions: Continued estradiol 10 mcg tablet See Rx Instructions .ROUTE .COMPLEX Qty: 18 1RF Dose Instruction: INSERT 1 TABLET VAGINALLY ONCE EVERY 5 DAYS Rx Instructions: INSERT 1 TABLET VAGINALLY ONCE EVERY 5 DAYS acetaminophen 650 mg Tablet Extended Release 650 mg PO Q8H PRN (Reason: Pain (Scale Score 4-6)) 0RF Sleep Aid (diphenhydramine) 25 mg PO QPCHS 0RF Follow up/Referrals: Wendi Peterson PA-C [Primary Care Provider] - Discharge Data Primary Care Provider: Wendi Peterson Quality VTE Deep Vein Thrombosis/Pulmonary Embolism Present on Admission: Yes
--- NOTE | 2021-08-28 11:00 | PC.NURSE ---
Addendum entered by Jimmy Liao R.N. 08/28/21 11:50: IV ddc'd intact. Discharge paperwork packet given to facility transporter. Patient picked up via wheelchair for discharge to [facility]. She reports no further questions or concerns. Patient is to schedule a follow up with her Oncologist nahun for this week (offices closed at this time to schedule). Original Note: Report called to Amy at [facility].
--- NOTE | 2021-08-28 11:09 | PM.DS.1 ---
History of Present Illness History of Present Illness Chief complaint: Weakness/dehydration Narrative: This is a 70-year-old female with lymphoma, osteoporosis and multiple spinal compression fractures who presents with left-sided chest pain and shortness of breath for 3 days.? She saw her primary care physician accounts payable assistant yesterday on [facility] who did initial testing and then today contacted her with directions to go to the emergency department.? She arrived by helicopter here and has had CT scanning confirming a pulmonary embolus and a Liver Metastasis from an apparent right Colon Cancer source.? She did have a PE once before in 1994 after vein surgery.? She has had no fevers, coughing, abdominal pain, bleeding, rash. Discharge Providers Provider Date of admission: 08/24/21 14:35 Discharge Date: 08/28/21 Primary care physician: Wendi Peterson PA-C Consults: 08/24/21 17:46 Consult to Occupational Therapy Evaluate & Treat Comment: Physician Instructions: Evaluate and treat Consult to Physical Therapy Evaluate & Treat Comment: Physician Instructions: Evaluate and Treat 08/24/21 18:38 Consult to Dietitian, Adult Routine Comment: Reason For Exam: Decreased weight and food intake 08/26/21 12:02 Consult to Occupational Therapy Evaluate & Treat Comment: Physician Instructions: Evaluate and treat Discharge provider: Kirti Estrella MD Summary Hospital Course Discharge Diagnosis: Pulmonary Embolism. Hospital Course: Presented with left-sided chest pain and shortness of breath. CT scan confirmed pulmonary embolism and colon mass with liver metastases.There are diagnoses of underlying lymphoma and osteoporosis and spinal compression fractures. Patient initiated on lovenox therapeutic dose. At the time of discharge patient transitioned to Eliquis or medication for anticoagulation and will have a followup after discharge with her oncologist Dr. Reddy. She was stable on room air and chest was clear. Status at Discharge Cognitive/behavioral status at discharge: oriented Functional status at discharge: independent ambulation Overall status at discharge: other Exam Vital Signs (past 8 hours): - 08/28/21 06:00 08/28/21 06:11 08/28/21 07:31 Temperature 98.4 F Pulse Rate 82 Respiratory Rate 16 Blood Pressure 105/64 Pulse Oximetry 95 95 95 08/28/21 07:45 Temperature 99.0 F Pulse Rate 88 Respiratory Rate 16 Blood Pressure 118/67 Pulse Oximetry 97 Oxygen Delivery Method Room Air Oxygen Flow Rate 0 Const Other: Appears well in no distress. Resp Auscultation: clear to auscultation bilaterally Cardio Palpation: normal PMI Rate: tachycardic Heart Sounds: S1 normal and S2 normal Pulses: normal peripheral pulses GI Palpation: soft Auscultation: normal bowel sounds Objective ECG Impression: Stable. ready for discharge. Labs Result Diagrams: 08/25/21 05:40 08/27/21 08:08 Labs: Laboratory Results - last 24 hr 08/27/21 14:30 SARS-CoV-2 (PCR) Negative [facility] Medical History Allergies Chicken pox Chronic back pain Eczema Follicular lymphoma (~2011) Fractures Frequent UTI (~2012) Headache Human papilloma virus (~2012) Measles Migraines Near sighted Osteoporosis (~2013) Pulmonary embolism (~1994) Surgical History Anesthesia H/O varicose vein ligation (~1994) History of surgery (~1969) Status post biopsy Status post delivery (~1987) Status post dilation and curettage Status post dilation and curettage Status post loop electrosurgical excision procedure (LEEP) of cervix Family History Father No problems noted. Mother Skin cancer Mental health problem Sister Polio Social History household members: none Smoking Status: Former smoker alcohol intake: former Discharge Plan Discharge Plan Patient Disposition: SNF Transfer to: [facility] Discharge orders & Medications Prescriptions: New sennosides [senna] 8.6 mg Tablet 17.2 mg PO BEDTIME Qty: 30 0RF acetaminophen 325 mg Tablet 650 mg PO Q6HR PRN (Reason: Fever) Qty: 30 0RF trazodone 50 mg Tablet 50 mg PO BEDTIME PRN (Reason: insomnia) Qty: 30 0RF melatonin 3 mg Tablet 6 mg PO BEDTIME Qty: 30 0RF bisacodyl 10 mg Suppository 10 mg MN DAILY PRN (Reason: Constipation) Qty: 12 0RF diphenhydramine HCl [Allergy (diphenhydramine)] 25 mg Tablet 25 mg PO BEDTIME PRN (Reason: Insomnia) Qty: 30 0RF calcium carbonate 200 mg calcium (500 mg) Tablet,Chewable 1,000 mg PO Q4HR PRN (Reason: Dyspepsia) Qty: 60 0RF Eliquis DVT-PE Treat 30D Start 5 mg (74 tabs) tablets,dose pack 5 mg PO BID Qty: 1 0RF Continued estradiol 10 mcg tablet See Rx Instructions .ROUTE .COMPLEX Qty: 18 1RF Dose Instruction: INSERT 1 TABLET VAGINALLY ONCE EVERY 5 DAYS Rx Instructions: INSERT 1 TABLET VAGINALLY ONCE EVERY 5 DAYS acetaminophen 650 mg Tablet Extended Release 650 mg PO Q8H PRN (Reason: Pain (Scale Score 4-6)) 0RF Sleep Aid (diphenhydramine) 25 mg PO QPCHS 0RF Follow up/Referrals: Wendi Peterson PA-C [Primary Care Provider] - Diet/Activity/Treatments Diet: Low-sodium and Low-cholesterol [facility] Restrictions to mobility: None. Activity as tolerated. Discharge Data Primary Care Provider: Wendi Peterson Quality VTE Deep Vein Thrombosis/Pulmonary Embolism Present on Admission: Yes
--- NOTE | 2021-08-28 11:23 | PM.DS.1 ---
History of Present Illness History of Present Illness Chief complaint: Weakness/dehydration Narrative: This is a 70-year-old female with lymphoma, osteoporosis and multiple spinal compression fractures who presents with left-sided chest pain and shortness of breath for 3 days.? She saw her primary care physician employment assistant yesterday on [facility] who did initial testing and then today contacted her with directions to go to the emergency department.? She arrived by helicopter here and has had CT scanning confirming a pulmonary embolus and a Liver Metastasis from an apparent right Colon Cancer source.? She did have a PE once before in 1994 after vein surgery.? She has had no fevers, coughing, abdominal pain, bleeding, rash. Discharge Providers Provider Date of admission: 08/24/21 14:35 Discharge Date: 08/28/21 Primary care physician: Wendi Peterson PA-C Consults: 08/24/21 17:46 Consult to Occupational Therapy Evaluate & Treat Comment: Physician Instructions: Evaluate and treat Consult to Physical Therapy Evaluate & Treat Comment: Physician Instructions: Evaluate and Treat 08/24/21 18:38 Consult to Dietitian, Adult Routine Comment: Reason For Exam: Decreased weight and food intake 08/26/21 12:02 Consult to Occupational Therapy Evaluate & Treat Comment: Physician Instructions: Evaluate and treat Discharge provider: Kirti Estrella MD Exam Vital Signs (past 8 hours): - 08/28/21 06:00 08/28/21 06:11 08/28/21 07:31 Temperature 98.4 F Pulse Rate 82 Respiratory Rate 16 Blood Pressure 105/64 Pulse Oximetry 95 95 95 08/28/21 07:45 Temperature 99.0 F Pulse Rate 88 Respiratory Rate 16 Blood Pressure 118/67 Pulse Oximetry 97 Oxygen Delivery Method Room Air Oxygen Flow Rate 0 Objective Labs Result Diagrams: 08/25/21 05:40 08/27/21 08:08 Labs: Laboratory Results - last 24 hr 08/27/21 14:30 SARS-CoV-2 (PCR) Negative [facility] Medical History Allergies Chicken pox Chronic back pain Eczema Follicular lymphoma (~2011) Fractures Frequent UTI (~2012) Headache Human papilloma virus (~2012) Measles Migraines Near sighted Osteoporosis (~2013) Pulmonary embolism (~1994) Surgical History Anesthesia H/O varicose vein ligation (~1994) History of surgery (~1969) Status post biopsy Status post delivery (~1987) Status post dilation and curettage Status post dilation and curettage Status post loop electrosurgical excision procedure (LEEP) of cervix Family History Father No problems noted. Mother Skin cancer Mental health problem Sister Polio Social History household members: none Smoking Status: Former smoker alcohol intake: former Discharge Plan Discharge Plan Patient Disposition: [facility] In[facility] Re[facility] Transfer to: [facility] Discharge orders & Medications Discharge Orders: Discharge (Order); Ordered 08/28/21 Ordered By: Kirti Estrella Prescriptions: New sennosides [senna] 8.6 mg Tablet 17.2 mg PO BEDTIME Qty: 30 0RF acetaminophen 325 mg Tablet 650 mg PO Q6HR PRN (Reason: Fever) Qty: 30 0RF trazodone 50 mg Tablet 50 mg PO BEDTIME PRN (Reason: insomnia) Qty: 30 0RF melatonin 3 mg Tablet 6 mg PO BEDTIME Qty: 30 0RF bisacodyl 10 mg Suppository 10 mg ID DAILY PRN (Reason: Constipation) Qty: 12 0RF diphenhydramine HCl [Allergy (diphenhydramine)] 25 mg Tablet 25 mg PO BEDTIME PRN (Reason: Insomnia) Qty: 30 0RF calcium carbonate 200 mg calcium (500 mg) Tablet,Chewable 1,000 mg PO Q4HR PRN (Reason: Dyspepsia) Qty: 60 0RF Eliquis DVT-PE Treat 30D Start 5 mg (74 tabs) tablets,dose pack 5 mg PO BID Qty: 1 0RF Continued estradiol 10 mcg tablet See Rx Instructions .ROUTE .COMPLEX Qty: 18 1RF Dose Instruction: INSERT 1 TABLET VAGINALLY ONCE EVERY 5 DAYS Rx Instructions: INSERT 1 TABLET VAGINALLY ONCE EVERY 5 DAYS acetaminophen 650 mg Tablet Extended Release 650 mg PO Q8H PRN (Reason: Pain (Scale Score 4-6)) 0RF Sleep Aid (diphenhydramine) 25 mg PO QPCHS 0RF Follow up/Referrals: Wendi Peterson PA-C [Primary Care Provider] - Diet/Activity/Treatments Diet: Low-sodium and Low-cholesterol [facility] Restrictions to mobility: None. Activity as tolerated. Discharge Data Primary Care Provider: Wendi Peterson Quality VTE Deep Vein Thrombosis/Pulmonary Embolism Present on Admission: Yes
--- NOTE | 2021-08-28 12:40 | CM.DPC ---
DCP Cont: Updated hospitalist, Dr. Carl, that patient is to discharge today to [facility] with pepper picker time of 1130. Already updated nurse, Jimmy, and gave her report number. Updated white board at main nurses station. Hospitalist was unsure as to how to do the orders, hasn't worked with [employer]. Asked Dr. Guzman this am if he could assist her, but later on, she needed additional assistance. Dr. Lam was able to give her some assistance. Asked Dr. Carl to include diet in her discharge summary. Printed out med list, but was not complete, there were additional meds. She did not know how to print out script for Trazadone, had her write on prescription pad. Jazmin was able to assist her with additional meds, and she signed them. Faxed them to [facility], included PASSR, COVID results, DC Summary, med sheets and prescription for Trazadone. P: Patient discharged to [facility] today. Agueda Garay RN/Professional Development Director
== END 2021-08-28 11:40 | DRG 176 ==
LOC: ED 14:35 → AC 14:38
PROVIDERS: Family Medicine; Internal Medicine; Student in an Organized Health Care Education/Training Program; Admitting Provider Hospitalist; Emergency Provider Emergency Medicine; Family Provider Physician Assistant Medical; PCP Physician Assistant Medical; Referring Provider Emergency Medicine; Visit Provider Hospitalist
DX: I26.99 Other pulmonary embolism without acute cor pulmonale (principal); C78.7 Secondary malignant neoplasm of liver and intrahepatic bile duct; C77.2 Secondary and unspecified malignant neoplasm of intra-abdominal lymph nodes; E22.2 Syndrome of inappropriate secretion of antidiuretic hormone; C18.9 Malignant neoplasm of colon, unspecified; M84.48XA Pathological fracture, other site, initial encounter for fracture; E87.6 Hypokalemia; D63.0 Anemia in neoplastic disease; M81.0 Age-related osteoporosis without current pathological fracture; Z87.891 Personal history of nicotine dependence; Z20.822 Contact with and (suspected) exposure to COVID-19; R53.83 Other fatigue; R11.0 Nausea; R19.7 Diarrhea, unspecified; R68.83 Chills (without fever); N89.0 Mild vaginal dysplasia
CPT/HCPCS: 0240U; 36415; 71045; 71275; 74177; 80048; 80053; 82550; 83690; 83735; 83880; 84443; 84484; 85007; 85025; 87635; 93005; 93306; 94760; 96372; 97110; 97116; 97129; 97162; 97166; 97530; 99284; C9803; J1650; Q9967

== ENCOUNTER → 2021-09-07 10:20 | Outpatient (CLI) | payer SELFPAY ==
[2021-08-24 14:38] VITALS: BMI 25.7
[2021-09-07 11:31] LABS: COVID19 -Nasal RAPID Negative (Negative)
== END ==
PROVIDERS: Family Provider Physician Assistant Medical; PCP Physician Assistant Medical; Visit Provider Surgery
DX: Z20.822 Contact with and (suspected) exposure to COVID-19 (principal); Z01.812 Encounter for preprocedural laboratory examination
CPT/HCPCS: 87635; C9803

== ENCOUNTER 2021-09-08 10:56 | Day surgery (SDC) | payer MEDICARE, MEDICAID, SELFPAY ==
[2021-08-24 14:38] VITALS: BMI 25.7
[2021-09-06 11:41] VITALS: BMI 25.9
--- NOTE | 2021-09-07 16:13 | PM.OP.EGD ---
Operative Date/Time/Diagnoses Date of procedure: 09/07/21 Time of procedure: 16:13 Pre-op diagnosis: Acute blood loss anemia Post-op diagnosis: same Procedure & Clinicians Study performed: Esophagogastroduodenoscopy Same procedure as scheduled: Yes Surgeon: Teodoro Restrepo Procedure Notes Procedure in detail: Surgeon: Teodoro Restrepo MD Anesthesia: Aiden Bass MD A timeout was performed. General endotracheal anesthesia was induced. A bite blocked was placed. The patient remained supine. The endoscope was inserted through the bite block and passed through the esophagus and stomach. There was no blood or blood clots in the stomach. There was a rather large ulcer in the antrum with the help whitish base. There was no visible vessel and no signs of active bleeding. The scope was then advanced into the duodenum. The duodenal mucosa appeared normal and again there was no fresh blood or even old clot. The scope was withdrawn into the duodenal bulb and no ulcers were noted. The scope was withdrawn into the stomach. Random biopsies were taken from the antrum away from the ulcer. The rest of the stomach was normal. The scope was retroflexed and a small hiatal hernia was noted. The scope was withdrawn into the esophagus and no abnormalities noted. The remainder of the esophagus was normal. The scope was withdrawn. The patient was awakened and brought to recovery. Findings: Large pre-pyloric ulcer with no signs of active bleeding Sedation minutes: 7 Post-procedure Plan for aftercare: Proton pump inhibitor therapy, cessation of smoking and repeat EGD in 3 months to confirm resolution of ulcer
[2021-09-08] VITALS (10 sets, daily range): BP systolic 101–115; BP diastolic 57–75; PULSE 75–821; RESP 14–18; TEMP 36.3–36.8; O2SAT 98–100; BMI 34.1
--- NOTE | 2021-09-08 | PATH_ITS ---
[facility] Accession Number: [id number] . 01 Material submitted: . PART A: colon - RIGHT COLON MASS PART B: colon - ASCENDING POLYP . 01 Diagnosis: A. Right Colon, Mass, Biopsies: Poorly differentiated adenocarcinoma. Please see comment. . B. Ascending Colon, Polyp, Biopsy: Poorly differentiated adenocarcinoma. Please see comment. MRV 09/15/2021 1003 Local . 01 Comment: A-B. The immunophenotype supports GI tract origin. A pancreaticobiliary site of origin can not be completely excluded. Correlation with radiology is recommended to confirm primary site of origin. As part of routine senior quality methods specialist, Dr. Henderson also reviewed this case and agrees with the interpretation. Dr. Lacy discussed preliminary results with Dr. Restrepo on 09/13/2021. . 01 Electronically signed: . Wendi Lacy MD, Pathologist NPI- [id number] . 01 Gross description: . Part A: RIGHT COLON MASS: Received in formalin are multiple fragment(s) of robles, soft tissue measuring 0.1 x 0.1 x 0.1 cm to 0.4 x 0.3 x 0.2 cm submitted entirely in 1 cassette(s) Part B: ASCENDING POLYP: Received in formalin are 2 fragment(s) of robles, soft tissue measuring 0.3 x 0.2 x 0.2 cm to 0.5 x 0.3 x 0.3 cm submitted entirely in 1 cassette(s) /TINA 09/11/2021 1912 Local . 01 Microscopic: . Immunohistochemical stains were performed on block A1 in order to characterize cells of interest. All control stains showed appropriate reactivity. . RESULTS: JOANNA: Positive. CDX-2: Variably positive. Villin: Variable positive. S100: Negative. PAX8: Negative. SATB2: Positive. GATA3: Negative. CK7: Variably positive. CK20: Rare positive cells. . MLH1: Loss of nuclear expression. MSH2: Intact nuclear expression. MSH6: Intact nuclear expression. PMS2: Loss of nuclear expression. Background nonneoplastic tissue/internal control with intact nuclear expression. . INTERPRETATION: The immunophenotype supports carcinoma of GI tract origin due to expression of CDX2, villin and SATB2. The pattern of variable CK7 expression and rare CK20 expression could be seen in some colorectal carcinomas, particularly those with loss of mismatch repair protein expression, but can also be compatible with pancreatibiliary origin, in the appropriate clinical and radiologic setting. The absence of PAX8 mitigates against gynecologic origin. The absence of GATA3 mitigates against urothelial or breast origin. . . Loss of nuclear expression of MLH1 and PMS2: testing for methylation of the MLH1 promoter and/or mutation of BRAF is indicated (the presence of a BRAF V600E mutation and/or MLH1 methylation suggests that the tumor is sporadic and germline evaluation is probably not indicated; absence of both MLH1 methylation and of BRAF V600E mutation suggests the possibility of Feng syndrome, and sequencing and/or large deletion/duplication testing of germline MLH1 may be indicated)* . * There are exceptions to the above IHC interpretations. These results should not be considered in isolation, and clinical correlation with genetic counseling is recommended to assess the need for germline testing. . * This test was developed and its performance characteristics determined by [employer]. It has not been cleared or approved by the U.S. Food and Drug Administration. The FDA has determined that such clearance or approval is not necessary. This test is used for clinical purposes. It should not be regarded as investigational or for research. . 01 Pathologist provided ICD-10: C78.7, C18.2 . 01 CPT . 276098, 337660, N27009, K70050 Specimen Comment: A courtesy copy of this report has been sent to [phone] Performed at: 01 [facility] [address] [place] [address] [address], [place], [place] [id number] MD Michi Henderson MD Phone: [phone]
--- NOTE | 2021-09-08 | DI.RAD.S_ITS ---
PROCEDURE: XR CHEST 1V INDICATIONS: POST PORT A CATH PLACEMENT TECHNIQUE: One view of the chest was acquired. COMPARISON: [facility], CR, XR CHEST 1V, 08/24/2021, 11:02. FINDINGS: Surgical changes and devices: Right chest wall Port-A-Cath tip is in SVC. Lungs and pleura: Left basilar atelectasis/small infiltrate is likely present. Trace left pleural effusion is also noted with blunting of left costophrenic angle. No gross pneumothorax. No pleural effusions or pneumothorax. Mediastinum: Tortuous thoracic aorta is seen. Heart size is enlarged. Bones and chest wall: No suspicious bony lesions. Overlying soft tissues appear unremarkable. IMPRESSION: Right chest wall Port-A-Cath tip is in SVC. Trace left pleural effusion and left basilar small infiltrate/atelectasis. Tortuous thoracic aorta. Cardiomegaly. No pneumothorax. Dictated by: Greyson Swenson M.D. on 09/08/2021 at 14:32 Approved by: Greyson Swenson M.D. on 09/08/2021 at 14:36
[2021-09-08] MEDS: LACTATED RINGERS 1,000 ML 42 ML IV (12:09)
--- NOTE | 2021-09-08 12:16 | PM.HP.1 ---
History of Present Illness History of Present Illness Date Patient Seen: 09/08/21 Time Patient Seen: 12:16 Chief complaint: [facility] Narrative: Mehreen is a 70-year-old woman who presented to the ER recently for shortness of breath and a CT scan was performed which which showed a pulmonary embolism and large, malignant-appearing liver mass . There was also concern about a potential right colon mass on CT. She was started on anticoagulation for her pulmonary embolus. she reports that she has had a few episodes of melena over the past several months. She reports she has a rectal prolapse which makes it difficult to have a bowel movement. She has prior history of lymphoma and has had a Port-A-Cath in the left pectoral region. She recently saw Dr. Reddy who recommended the colonoscopy as well as Port-A-Cath. Patient History Medical History Allergies Chicken pox Chronic back pain Eczema Follicular lymphoma (~2011) Fractures Frequent UTI (~2012) Headache Human papilloma virus (~2012) Measles Migraines Near sighted Osteoporosis (~2013) Pulmonary embolism (~1994) Surgical History Anesthesia H/O varicose vein ligation (~1994) History of surgery (~1969) Status post biopsy Status post delivery (~1987) Status post dilation and curettage Status post dilation and curettage Status post loop electrosurgical excision procedure (LEEP) of cervix Family & Social History Family History Father No problems noted. Mother Skin cancer Mental health problem Sister Polio Social History: household members none Tobacco & Substance use: Tobacco type cigarettes Smoking Status Former smoker alcohol intake former alcohol intake frequency 0-2 drinks per day Substance Use Type does not use Meds Home Medications and Allergies Home Medications Medication Instructions Recorded Confirmed Type estradiol 10 mcg vaginal tablet See Rx Instructions .Route 05/22/21 09/06/21 Rx .COMPLEX #18 tabs acetaminophen 650 mg 650 mg PO Q8H PRN Pain (Scale 08/17/21 09/06/21 History tablet,extended release Score 4-6) Sleep Aid (diphenhydramine) 25 mg PO QPCHS insomnia 08/24/21 09/06/21 History acetaminophen 325 mg tablet 650 mg PO Q6HR PRN Fever #30 tabs 08/28/21 09/06/21 Rx apixaban 5 mg (74 tabs) tablets in 5 mg PO BID #1 ea 08/28/21 09/08/21 Rx a dose pack (Eliquis DVT-PE Treat 30D Start) bisacodyl 10 mg rectal suppository 10 mg OH DAILY PRN Constipation 08/28/21 09/06/21 Rx #12 ea calcium carbonate 200 mg calcium 1,000 mg PO Q4HR PRN Dyspepsia #60 08/28/21 09/06/21 Rx (500 mg) chewable tablet tabs diphenhydramine HCl 25 mg tablet 25 mg PO BEDTIME PRN Insomnia #30 08/28/21 09/06/21 Rx (Allergy (diphenhydramine)) tabs melatonin 3 mg tablet 6 mg PO BEDTIME #30 tabs 08/28/21 09/08/21 Rx sennosides 8.6 mg tablet (senna) 17.2 mg PO BEDTIME #30 tabs 08/28/21 09/06/21 Rx trazodone 50 mg tablet 50 mg PO BEDTIME PRN insomnia #30 08/28/21 09/06/21 Rx tabs magnesium 100 mg tablet 100 mg PO 09/04/21 History peg 3350-electrolytes 236 240 ml PO Q10M #4,000 mL 09/06/21 09/06/21 Rx gram-22.74 gram-6.74 gram-5.86 gram solution (Golytely) Allergies Allergy/AdvReac Type Severity Reaction Status Date / Time Penicillins Allergy Severe HIVES, Verified 08/24/21 10:14 THROAT SWELLING glycerin Allergy Mild RASH Verified 08/24/21 10:14 latex Allergy Mild RASH Verified 08/24/21 10:14 oxycodone Allergy Mild ITCHING Verified 08/24/21 10:14 grape seed AdvReac Mild FEVER Verified 08/24/21 10:14 BLISTERS FERMENTED FOODS Allergy Mild RASH Uncoded 08/24/21 10:14 FOOD PRESERVATIVES Allergy Mild RASH Uncoded 08/24/21 10:14 ACIDIC FOODS Allergy Unknown Uncoded 08/24/21 10:14 Exam Vital Signs (past 8 hours): - 09/08/21 11:36 Temperature 98.2 F Pulse Rate 95 H Respiratory Rate 16 Blood Pressure 114/75 Pulse Oximetry 98 Oxygen Delivery Method Room Air Oxygen Delivery Method Room Air Const General: frail appearing Resp Effort & Inspection: normal respiratory effort Assessment & Plan Assessment and plan (1) Liver mass: Status: Acute Plan We will perform a colonoscopy as well as a Port-A-Cath placement. There is an increased risk of bleeding complications due to the anticoagulation however her recent pulmonary embolism it is likely safer to perform both of these procedures while anticoagulated then to interrupt the antecubital lesion. Risk of further embolic complications remains elevated even with the anticoagulation. Time Spent With Patient Critical Care time: I spent a total of [] minutes of critical care time on this patient's care today; this time is exclusive of procedural time.
[2021-09-08] MEDS: DEXTROSE 5% IV (12:48)
[2021-09-08] MEDS: CLINDAMYCIN IV (12:48)
[2021-09-08] MEDS: WATER IV (12:48)
--- NOTE | 2021-09-08 12:53 | SUR.OPER ---
Supine on padded OR bed, head on pillow, arms padded and tucked at sides, legs uncrossed, safety belt at thigh, tape over blanket over lower legs .
[2021-09-08] MEDS: LIDOCAINE 1% W/EPI 20 ML INJ (13:07)
[2021-09-08] MEDS: BUPIVACAINE 0.5% (PF) VIAL 30 ML INJ (13:08)
--- NOTE | 2021-09-08 14:06 | P.OP_ITS ---
Operative Date/Time/Diagnoses Date of procedure: 09/08/21 Time of procedure: 14:06 Pre-op diagnosis: Colon and liver mass Post-op diagnosis: same Procedure & Clinicians Procedure: Port-A-Cath placement followed by a colonoscopy Same procedure as scheduled: Yes Surgeon: Teodoro Restrepo Anesthesia Type: General Operative Notes Findings: Large, fungating, necrotic right colon mass Estimated Blood Loss (mL): 15 Procedure in detail: Port-A-Cath: The patient was brought to the operating room, placed on the table in the supine position with the arms tucked. Clindamycin was administered. Anesthesia was induced via LMA. A time-out was performed. The right chest and neck were prepped and draped in the usual fashion. An ultrasound was used to identify the right internal jugular vein. The vein was noted to be patent. The right internal jugular vein was accessed via the Seldinger technique under ultrasound guidance. The guidewire was inserted into the superior vena cava. A sonographic image was saved and printed and placed in the chart. C-arm was used to confirm proper position of the guidewire in the superior vena cava and no ectopy was noted. The needle was removed and the wire was clamped to the drape. Next, a port pocket was created just inferior to the medial clavicle using a 15 blade scalpel. Dissection was carried down to the pectoral fascia. A subcutaneous pocket was created using a combination of cautery and blunt dissection. Next, the port which was primed with injectable saline, was secured to the fascia with 3-0 PDS sutures left untied and clamped. The neck incision was extended with an 11 blade scalpel to approximately 5 mm. The dilator and peel-away sheath were inserted over the wire without resistance. The catheter was passed from the neck incision to the chest incision in the subcutaneous tissue using the tunnelling device. The wire and dilator were then removed and the catheter inserted through the peel-away sheath to deliver it into the sainz perior vena cava. The depth of the device was checked using the C-arm and the tip of the device was noted to be in the distal superior vena cava. The exterior portion of the catheter was then trimmed and attached to the port using the strain relief collar. A final image showed good position of the catheter with no kinks. The port was then tucked into the subcutaneous pocket and the sutures were tied to secure the device. The port was then accessed using the Cisneros needle and it was noted that the device samanta and flushed easily without resistance. Approximately 4 mL of heparinized saline were injected into the device. The skin incisions were closed with 3-0 Vicryl and 4-0 Monocryl. Steri-Strips were applied patient was awakened and brought to recovery room EBL: 5 mL Ultrasound: The right internal jugular vein was patent. The right carotid artery was visualized adjacent to the vein. Venipuncture was visualized in real-time using the ultrasound. Fluoroscopy: The device was positioned appropriately with the distal end of the catheter near the atriocaval junction. There were no kinks in the catheter. Colonoscopy: Next the patient was repositioned in the left lateral decubitus position for a colonoscopy. A digital rectal exam was performed and was significant with a patulous anus with no tone. There is a moderate amount of prolapsing mucosa consistent with a reduced rectal prolapse. The scope was then inserted and advanced to the right colon. In the proximal right colon a large, fungating, necrotic mass was observed. It was not actively bleeding. Multiple biopsies were taken with the Jumbo forceps. There is also a smaller polyp of roughly 2 cm the mid ascending colon. Several chunks were taken with the Jumbo forceps. The scope was then slowly withdrawn over greater than 6 minutes. The mucosa was thoroughly inspected. There were scattered diverticula in the sigmoid colon. No other lesions. The scope was retroflexed in the rectum. The distal rectum mucosa was rather inflamed consistent with history of rectal prolapse. The scope could not be retroflexed because there was no space in the rectal vault secondary to edema from her rectal prolapse. The scope was removed. The patient was awakened and brought to recovery. EBL: 5 mL Findings: Large mass in the right colon consistent with adenocarcinoma and 2 cm ascending colon polyp. Complications: none Post-operative Condition: stable Disposition: PACU
--- NOTE | 2021-09-08 15:36 | SUR.PHASEII ---
Report called to [facility] rehab facility to LOS Kinsey , to start Eloquis tonight and follow up with Oncology
== END 2021-09-08 15:55 | disposition home or self-care (01) ==
PROVIDERS: Family Provider Physician Assistant Medical; PCP Physician Assistant Medical; Referring Provider Surgery; Visit Provider Surgery
PROC: (CPT 36561; principal; 2021-09-08 12:00)
PROC: 0DJD8ZZ Inspection of Lower Intestinal Tract, Via Natural or Artificial Opening Endoscopic (ICD-10-PCS; CPT 45378; 2021-09-08 12:00)
DX: C18.2 Malignant neoplasm of ascending colon (principal); R16.0 Hepatomegaly, not elsewhere classified; I26.99 Other pulmonary embolism without acute cor pulmonale; Z85.72 Personal history of non-Hodgkin lymphomas; Z79.01 Long term (current) use of anticoagulants; K57.30 Diverticulosis of large intestine without perforation or abscess without bleeding; K62.2 Anal prolapse
CPT/HCPCS: 36561; 45380; 71045; 76000; 81001; 87086; C1788; J1100; J1644; J2405; J2704; J3010; S0077

== ENCOUNTER → 2021-09-22 17:00 | Outpatient (ROUT) | payer MEDICARE, MEDICAID, SELFPAY ==
[2021-08-24 14:38] VITALS: BMI 25.7
[2021-09-22 16:59] LABS: Appearance Urine UA SL CLOUDY; Bilirubin Urine UA 3+ (NEGATIVE); Glucose Urine UA TRACE g/dL (Negative); Ketones Urine UA NEGATIVE (NEGATIVE); Leukocyte Esterase Urine UA TRACE (NEGATIVE); Nitrite Urine UA NEGATIVE (Negative); Occult Blood Urine UA TRACE-LYSED (Negative); Protein Urine UA TRACE (Negative); Specific Gravity Urine UA 1.015 (1.000-1.035); Urobilinogen Urine UA 0.2 E.U./dL (0.2)
[2021-09-22 17:08] LABS: Color Urine UA ORANGE
[2021-09-22 17:09] LABS: Ictotest Urine Positive (Negative)
[2021-09-22 17:11] LABS: RBC Urine 0-1/HPF (0-5/HPF); Squamous Epithelial Cell Urine 0-1 /HPF (0-5/HPF); WBC Urine 5-10/HPF (0-5/HPF)
[2021-09-22 17:12] LABS: Amorphous Sediment Urine 1+; Bacteria Urine Many (>30); Culture Indicated Urine Specimen Cultured; Mucus Urine 2+ (Negative)
== END ==
PROVIDERS: Surgery; Family Provider Physician Assistant Medical; PCP Physician Assistant Medical; Visit Provider Physician Assistant
DX: R33.9 Retention of urine, unspecified (principal); R30.0 Dysuria
CPT/HCPCS: 81001; 87077; 87086; 87186

== ENCOUNTER → 2021-09-23 15:35 | Outpatient (ROUT) | payer MEDICARE, MEDICAID, SELFPAY ==
[2021-08-24 14:38] VITALS: BMI 25.7
[2021-09-23 16:23] LABS: Appearance Urine UA SL CLOUDY; Bilirubin Urine UA 3+ (NEGATIVE); Color Urine UA ORANGE; Glucose Urine UA TRACE g/dL (Negative); Ketones Urine UA TRACE (NEGATIVE); Leukocyte Esterase Urine UA TRACE (NEGATIVE); Nitrite Urine UA NEGATIVE (Negative); Occult Blood Urine UA NEGATIVE (Negative); Protein Urine UA TRACE (Negative); Urobilinogen Urine UA 0.2 E.U./dL (0.2)
[2021-09-23 16:31] LABS: Bacteria Urine Many (>30); Granular Casts Urine 1-5/LPF; Hyaline Casts Urine 1-5/LPF; Ictotest Urine Positive (Negative); RBC Urine 0-1/HPF (0-5/HPF); Squamous Epithelial Cell Urine 0-1 /HPF (0-5/HPF); Transitional Epi Cells Urine 0-1/HPF (0-5/HPF); WBC Urine 10-30/HPF (0-5/HPF)
[2021-09-23 16:37] LABS: Culture Indicated Urine Specimen Cultured
== END ==
PROVIDERS: Family Provider Physician Assistant Medical; PCP Physician Assistant Medical; Visit Provider Emergency Medicine
DX: R33.9 Retention of urine, unspecified (principal)
CPT/HCPCS: 81001; 87077; 87086; 87186